=== PATIENT | male | born 1950 | race Caucasian/White ===

== ENCOUNTER 2017-09-12 22:29 | Inpatient (IN) | payer MEDICARE ==
[~2017-09-12] VITALS: Ht 177.8 cm; Wt 97.3 kg
[~2017-09-12 22:29] MED LIST: ASPI81TA82 PO; LOVA20TA PO; PRIN5TAB PO
[2017-09-12 22:34] VITALS: BP 133/88; PULSE 119; RESP 20; TEMP 97.8; O2SAT 96
--- NOTE | 2017-09-12 22:53 | PD ---
HPI Chief Complaint: Cardiac Complaint Time Seen by Provider: 22:36 Travel History International Travel<30 days: No Contact w/Intl Traveler<30days: No Traveled to known affect area: No History of Present Illness HPI PATIENT DEVELOPED PALPITATIONS ABOUT 3HRS AGO WHILE WATCHING BASEBALL GAME, NO CP, STATES THAT HE IS NOT ANTICOAGULATED AND NOT ON ANY MAJOR RATE CONTROLLING MEDICINE BECAUSE OF HIS ABLATIONS. THIS IS UNUSUAL FOR HIM. PT TRIED MULTIPLE WAYS OF RELAXING AND NOTHING SEEMED TO WORK DIDN'T FEEL SAFE GOING TO SLEEP WITH HIS HEART RATE UP SO HE CAME INTO ED FOR FURTHER CARE. CHART AND RN NOTES REVIEWED PCP DR GUY AND CARD: JOJO TOBIAS FOR[facility]LY [facility], [facility] PMHX: HTN, INGUINAL REPAIR, HYPERCHOL, AFIB S/P ABLATION X2 PFSH Past Medical History Atrial Fibrillation: Yes Heart Rhythm Problems: Yes (A FIB s/p ablation x 2 in 2009) Cardiac Catheterization: No Cardiovascular Problems: Yes High Cholesterol: Yes Congestive Heart Failure: No Diabetes: No Diminished Hearing: No Hypertension: Yes Past Surgical History Cardiac Surgery: Yes (two ablations (2009)) Coronary Artery Bypass Graft: No Other Surgery: Yes (INGUINAL HERNIA REPAIR) Social History Alcohol Use: Yes (OCC) Tobacco Use: No Substance Use: No Allergies-Medications (Allergen,Severity, Reaction): Coded Allergies: No Known Allergies (Verified , 08/09/16) Reported Meds & Prescriptions Reported Meds & Active Scripts Active Prinivil (Lisinopril) 5 Mg Tab 5 Mg PO DAILY PRN Reported Aspir-81 (Aspirin) 81 Mg Tab 81 Mg PO DAILY Lovastatin 20 Mg Tab 20 Mg PO HS Review of Systems Except as stated in HPI: all other systems reviewed are Neg Cardiovascular: Positive: Palpitations, Irregular Rhythm Physical Exam Narrative GENERAL: SKIN: Warm and dry. HEAD: Atraumatic. Normocephalic. EYES: Pupils equal and round. No scleral icterus. No injection or drainage. ENT: No nasal bleeding or discharge. Mucous membranes pink and moist. NECK: Trachea midline. No JVD. CARDIOVASCULAR: TACHYCARDIC rate and IRREGULARLY IRREGULAR rhythm. RESPIRATORY: No accessory muscle use. Clear to auscultation. Breath sounds equal bilaterally. GASTROINTESTINAL: Abdomen soft, non-tender, nondistended. Hepatic and splenic margins not palpable. MUSCULOSKELETAL: Extremities without clubbing, cyanosis, or edema. No obvious deformities. NEUROLOGICAL: Awake and alert. No obvious cranial nerve deficits. Motor grossly within normal limits. Five out of 5 muscle strength in the arms and legs. Normal speech. PSYCHIATRIC: Appropriate mood and affect; insight and judgment normal. Data Data Last Documented VS Vital Signs Date Time Temp Pulse Resp B/P (MAP) Pulse Ox O2 Delivery O2 Flow Rate FiO2 09/12/17 23:11 16 95 Room Air 09/12/17 23:11 2.00 09/12/17 22:34 97.8 119 133/88 (103) Orders Orders Electrocardiogram (09/12/17 22:43) B-Type Natriuretic Peptide (09/12/17 22:43) Ckmb (Isoenzyme) Profile (09/12/17 22:43) Complete Blood Count With Diff (09/12/17 22:43) Comprehensive Metabolic Panel (09/12/17 22:43) Prothrombin Time / Inr (Pt) (09/12/17 22:43) Act Partial Throm Time (Ptt) (09/12/17 22:43) Troponin I (09/12/17 22:43) Chest, Single Ap (09/12/17 22:43) Ecg Monitoring (09/12/17 22:43) Bilateral Bp Monitoring (09/12/17 22:43) Iv Access Insert/Monitor (09/12/17 22:43) Oximetry (09/12/17 22:43) Oxygen Administration (09/12/17 22:43) Sodium Chloride 0.9% Flush (Ns Flush) (09/12/17 22:45) Diltiazem Inj (Cardizem Inj) (09/12/17 23:30) Diltiazem Inj (Cardizem Inj) (09/12/17 23:45) Diltiazem Inj (Cardizem Inj) (09/13/17 00:00) Sodium Chlor 0.9% 250 Ml Inj (Ns 250 Ml (09/13/17 00:00) Labs Laboratory Tests Test 09/12/17 22:48 White Blood Count 6.7 TH/MM3 Red Blood Count 4.95 MIL/MM3 Hemoglobin 16.1 GM/DL Hematocrit 46.0 % Mean Corpuscular Volume 93.0 FL Mean Corpuscular Hemoglobin 32.5 PG Mean Corpuscular Hemoglobin Concent 34.9 % Red Cell Distribution Width 14.1 % Platelet Count 223 TH/MM3 Mean Platelet Volume 8.6 FL Neutrophils (%) (Auto) 53.8 % Lymphocytes (%) (Auto) 33.2 % Monocytes (%) (Auto) 9.6 % Eosinophils (%) (Auto) 2.9 % Basophils (%) (Auto) 0.5 % Neutrophils # (Auto) 3.6 TH/MM3 Lymphocytes # (Auto) 2.2 TH/MM3 Monocytes # (Auto) 0.6 TH/MM3 Eosinophils # (Auto) 0.2 TH/MM3 Basophils # (Auto) 0.0 TH/MM3 CBC Comment DIFF FINAL Differential Comment Prothrombin Time 10.4 SEC Prothromb Time International Ratio 0.9 RATIO Activated Partial Thromboplast Time 28.1 SEC Blood Urea Nitrogen 17 MG/DL Creatinine 0.90 MG/DL Random Glucose 111 MG/DL Total Protein 7.4 GM/DL Albumin 3.8 GM/DL Calcium Level 8.4 MG/DL Alkaline Phosphatase 76 U/L Aspartate Amino Transf (AST/SGOT) 14 U/L Alanine Aminotransferase (ALT/SGPT) 25 U/L Total Bilirubin 0.4 MG/DL Sodium Level 139 MEQ/L Potassium Level 4.0 MEQ/L Chloride Level 108 MEQ/L Carbon Dioxide Level 22.1 MEQ/L Anion Gap 9 MEQ/L Estimat Glomerular Filtration Rate 85 ML/MIN Total Creatine Kinase 87 U/L Troponin I LESS THAN 0.02 NG/ML B-Type Natriuretic Peptide 221 PG/ML MDM Medical Decision Making Medical Screen Exam Complete: Yes Emergency Medical Condition: Yes Medical Record Reviewed: Yes Interpretation(s) AFIB WITH RVR, INTRAVENTRICULAR DELAY, NO STEMI PATTERN Differential Diagnosis AFIB WITH RVR V ELECTROLYTE ABNL V ANEMIA V PULM EDEMA V PNA Narrative Course AFTER PROVIDING TWO BOLUS OF CARDIZEM PATIENT CONVERTED TO SINUS RHYTHM AND AFIB RATE WAS RESOLVED WELL, RATE IN 80'S. Diagnosis Primary Impression: AFIB RVR S/P CHEMICAL CONVERSION Patient Instructions: A-fib (Atrial Fibrillation) (ED), General Instructions Additional Instructions: PLEASE MAKE SURE THAT YOU MAKE A FOLLOW UP APPOINTMENT WITH DR JOJO TOBIAS FOR FURTHER ADJUSTMENTS IF NEEDED. TODAY, ALTHOUGH IT TOOK 2 DOSES OF CARDIZEM , YOU EVENTUALLY CONVERTED FROM ATRIAL FIBRILLATION TO SINUS RHYTHM. Disposition: 01 DISCHARGE HOME Condition: Stable Kaleb Monroe MD Sep 12, 2017 22:53
--- NOTE | 2017-09-12 23:01 | RADRPT ---
EXAM DATE/TIME: 09/12/2017 22:44 [facility] COMPARISON: CHEST SINGLE AP, August 09, 2016, 17:18. INDICATIONS : Rapid heart rate. MEDICAL HISTORY : None. SURGICAL HISTORY : None. ENCOUNTER: Initial ACUITY: 1 day PAIN SCORE: 0/10 LOCATION: Chest. FINDINGS: The cardiac silhouette is enlarged in transverse diameter. The lungs are free of acute parenchymal op acity. No effusions are identified. The aortic knob is prominent with tortuosity of the descending th oracic aorta. CONCLUSION: 1. Cardiomegaly. No acute pulmonary disease. Wero Main MD on September 12, 2017 at 22:59 Board Certified Radiologist. This report was verified electronically.
[2017-09-12 23:08] LABS: AUTOMATED NEUTROPHIL # 3.6 TH/MM3 (1.8-7.7); BASOPHIL % 0.5 % (0.0-2.0); EOSINOPHIL # 0.2 TH/MM3 (0-0.4); EOSINOPHIL % 2.9 % (0.0-4.0); HEMO FLAGS DIFF FINAL; LYMPH % 33.2 % (9.0-44.0); LYMPHOCYTE # 2.2 TH/MM3 (1.0-4.8); MEAN CORPUSCULAR HEMOGLOBIN 32.5 PG (27.0-34.0); MEAN CORPUSCULAR HGB CONC 34.9 % (32.0-36.0); MONO % 9.6 % (0.0-8.0); NEUT % 53.8 % (16.0-70.0); PLATELET COUNT 223 TH/MM3 (150-450); RED BLOOD COUNT 4.95 MIL/MM3 (4.50-5.90); RED CELL DISTRIBUTION WIDTH 14.1 % (11.6-17.2); WHITE BLOOD COUNT 6.7 TH/MM3 (4.0-11.0)
[2017-09-12 23:11] VITALS: RESP 16; O2SAT 95
[2017-09-12 23:15] LABS: APTT (PATIENT) 28.1 SEC (24.3-30.1); INTERNATIONAL NORMALIZED RATIO 0.9 RATIO; PROTHROMBIN TIME - PATIENT 10.4 SEC (9.8-11.6)
[2017-09-12 23:24] LABS: ALKALINE PHOSPHATASE 76 U/L (45-117); TOTAL BILIRUBIN ADULT 0.4 MG/DL (0.2-1.0)
[2017-09-12 23:30] LABS: ALT (GPT) 25 U/L (12-78); ANION GAP 9 MEQ/L (5-15); AST (GOT) 14 U/L (15-37); BICARBONATE 22.1 MEQ/L (21.0-32.0); BLOOD UREA NITROGEN 17 MG/DL (7-18); CHLORIDE 108 MEQ/L (98-107); CREATINE KINASE 87 U/L (39-308); GLOMERULAR FILTRATION RATE 85 ML/MIN (>89); SODIUM (NA) 139 MEQ/L (136-145)
[2017-09-12] MEDS ORDERED: DILTIAZEM HCL 25 MG/5 ML VIAL IV ONE (23:30)
[2017-09-12] MEDS ORDERED: DILTIAZEM INJ 125 MG in SODIUM CHLORIDE 0.9% INJ 100 ML IV PRN (23:45)
[2017-09-13] VITALS (11 sets, daily range): BP systolic 104–125; BP diastolic 68–87; PULSE 89–178; RESP 15–20; TEMP 97.6–98.6; O2SAT 93–95
[2017-09-13] MEDS ORDERED: SODIUM CHLOR 0.9% 250 ML INJ 250 ML IV ONE
[2017-09-13] MEDS ORDERED: DILTIAZEM HCL 50 MG/10 ML VIAL IV PUSH ONE
--- NOTE | 2017-09-13 08:18 | PD.CONS ---
HPI Service cardiology Consult Requested By Reason for Consult afib RVR Primary Care Physician Darrel Campbell MD History of Present Illness This is a 67 yo WM with history of paroxysmal afib with ablation in 2009 and dilated cardiomyopathy who presented to the ED with fast heart rate last night found to be in afib RVR. He has had an ablation in 2009 and notes he's been in NSR ever since with the exception of an episode last year where he was in afib briefly. His last echo in November 2016 showed an EF of 35-40% and he has been medically managed with ACEi and bb. 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 HR now reduced to 112. He is feeling better and denies chest pain, sob or palpitations. (Monika Miller) Review of Systems Consitutional: DENIES: Fatigue, Fever, Chills, Weight gain, Weight loss Respiratory: DENIES: Cough, Snoring, Shortness of breath, Wheezing, Sputum production Cardiovascular: DENIES: Chest pain, Palpitations, Syncope Gastrointestinal: DENIES: Nausea, Vomiting, Change in bowel habits, Reflux, Bloody stools, Melena (Monika Miller) Past Family Social History Allergies: Coded Allergies: No Known Allergies (Verified , 08/09/16) Past Medical History HTN HLD pafib Past Surgical History ablation x 2 inguinal hernia repair Reported Medications Reported Meds & Active Scripts Active Prinivil (Lisinopril) 5 Mg Tab 5 Mg PO DAILY PRN Reported Aspir-81 (Aspirin) 81 Mg Tab 81 Mg PO DAILY Lovastatin 20 Mg Tab 20 Mg PO HS Active Ordered Medications Current Medications Medications (Trade) Dose Ordered Sig/Rich Route Start Time Stop Time Status Last Admin (NS Flush) 2 ml UNSCH PRN IVF 09/12/17 22:45 Diltiazem HCl 125 mg/Sodium Chloride 125 ml @ 5 mls/hr TITRATE PRN IV 09/12/17 23:45 09/13/17 01:36 Family History non-contributory Social History social drinker no tobacco no illicit drug use (Monika Miller) Physical Exam Vital Signs Vital Signs Date Time Temp Pulse Resp B/P (MAP) Pulse Ox O2 Delivery O2 Flow Rate FiO2 09/13/17 06:57 09/13/17 06:00 89 15 104/68 (80) 93 Room Air 09/13/17 02:43 123 114/70 09/13/17 01:53 121 109/73 09/13/17 01:36 121 105/71 09/13/17 01:13 84 18 110/68 (82) 99 09/12/17 23:11 16 95 Room Air 09/12/17 23:11 95 Nasal Cannula 2.00 09/12/17 22:34 97.8 119 20 133/88 (103) 96 Physical Exam HEAD: Atraumatic. Normocephalic. EYES: Pupils equal and round. No scleral icterus. No injection or drainage. ENT: No nasal bleeding or discharge. Mucous membranes pink and moist. NECK: Trachea midline. No JVD. CARDIOVASCULAR: irregular rate and rhythm, no murmurs RESPIRATORY: No accessory muscle use. Clear to auscultation. Breath sounds equal bilaterally. GASTROINTESTINAL: Abdomen soft, non-tender, nondistended. MUSCULOSKELETAL: Extremities without clubbing, cyanosis, or edema. No obvious deformities. NEUROLOGICAL: Awake and alert. No obvious cranial nerve deficits. Motor grossly within normal limits. Five out of 5 muscle strength in the arms and legs. Normal speech. PSYCHIATRIC: Appropriate mood and affect; insight and judgment normal. Laboratory Laboratory Tests Test 09/12/17 22:48 White Blood Count 6.7 Red Blood Count 4.95 Hemoglobin 16.1 Hematocrit 46.0 Mean Corpuscular Volume 93.0 Mean Corpuscular Hemoglobin 32.5 Mean Corpuscular Hemoglobin Concent 34.9 Red Cell Distribution Width 14.1 Platelet Count 223 Mean Platelet Volume 8.6 Neutrophils (%) (Auto) 53.8 Lymphocytes (%) (Auto) 33.2 Monocytes (%) (Auto) 9.6 Eosinophils (%) (Auto) 2.9 Basophils (%) (Auto) 0.5 Neutrophils # (Auto) 3.6 Lymphocytes # (Auto) 2.2 Monocytes # (Auto) 0.6 Eosinophils # (Auto) 0.2 Basophils # (Auto) 0.0 CBC Comment DIFF FINAL Differential Comment Prothrombin Time 10.4 Prothromb Time International Ratio 0.9 Activated Partial Thromboplast Time 28.1 Blood Urea Nitrogen 17 Creatinine 0.90 Random Glucose 111 Total Protein 7.4 Albumin 3.8 Calcium Level 8.4 Alkaline Phosphatase 76 Aspartate Amino Transf (AST/SGOT) 14 Alanine Aminotransferase (ALT/SGPT) 25 Total Bilirubin 0.4 Sodium Level 139 Potassium Level 4.0 Chloride Level 108 Carbon Dioxide Level 22.1 Anion Gap 9 Estimat Glomerular Filtration Rate 85 Total Creatine Kinase 87 Troponin I LESS THAN 0.02 B-Type Natriuretic Peptide 221 (Monika Miller) Result Diagram: 09/12/17224709/12/172247 Imaging Last 24 hours Impressions Chest X-Ray 09/12/172242 Signed Impressions: Service Date/Time: Tuesday, September 12, 2017 22:44 - CONCLUSION: 1. Cardiomegaly. No acute pulmonary disease. Wero Main MD (Monika Miller) Assessment and Plan Problem List: (1) Atrial fibrillation with RVR ICD Codes: I48.91 - Unspecified atrial fibrillation Status: Acute (2) Cardiomyopathy ICD Codes: I42.9 - Cardiomyopathy, unspecified Status: Chronic Assessment and Plan 67 yo WM with pafib and cardiomyopathy, EF 35-40% afib RVR: convert cardizem to po will need to discuss need for anticoagulation. CHADS-Vasc = 3 (Monika Miller) Assessment and Plan PO cardizem limited by SBP wean cardizem gtt add digoxin no need for echo. recently done as outpatient. agreeable to anticoagulation. start eliquis hold BB and DAVID for now to allow SBP for titration of rate control meds (Shayne Ortega MD) Monika Miller Sep 13, 2017 08:18 Shayne Ortega MD Sep 13, 2017 11:03
[2017-09-13] MEDS ORDERED: LISINOPRIL 10 MG TAB PO SCH (09:00)
--- NOTE | 2017-09-13 09:00 | HHI.HP ---
HPI Service [facility] Hospitalists Primary Care Physician Darrel Campbell MD Admission Diagnosis afib/flutter Chief Complaint: palpitation Travel History International Travel<30 Days: No Contact w/Intl Traveler <30 Da: No Traveled to Known Affected Are: No History of Present Illness Pt is 67 yo with hx afib/flutter and 2 ablations around 2009. He has chronic systolic chf and ef around 40%. Pt says he developed some brief afib last year. Last night developed more sustained palpitations. Came to ED and found to have afib/rvr. Placed on cardizem gtt. Seen by cardiology this AM. no cp or sob. Review of Systems Other palpitations Past Family Social History Past Medical History afib/flutter. ablation x 2 2009 hyperlipidemia chronic systolic chf ef 40% Tonsils/adenoids childhood hernia repair Reported Medications lovastatin 20mg qhs lisinipril 10mg dialy coreg 6.25mg bid asa 81mg daily Allergies: Coded Allergies: No Known Allergies (Verified , 08/09/16) Family History NC Social History no tob. rare etoh Physical Exam Vital Signs heart irreg lung cta abd s/nt ext no edema Vital Signs Date Time Temp Pulse Resp B/P (MAP) Pulse Ox O2 Delivery O2 Flow Rate FiO2 09/13/17 06:57 09/13/17 06:00 89 15 104/68 (80) 93 Room Air 09/13/17 02:43 123 114/70 09/13/17 01:53 121 109/73 09/13/17 01:36 121 105/71 09/13/17 01:13 84 18 110/68 (82) 99 09/12/17 23:11 16 95 Room Air 09/12/17 23:11 95 Nasal Cannula 2.00 09/12/17 22:34 97.8 119 20 133/88 (103) 96 Laboratory Laboratory Tests Test 09/12/17 22:48 White Blood Count 6.7 Red Blood Count 4.95 Hemoglobin 16.1 Hematocrit 46.0 Mean Corpuscular Volume 93.0 Mean Corpuscular Hemoglobin 32.5 Mean Corpuscular Hemoglobin Concent 34.9 Red Cell Distribution Width 14.1 Platelet Count 223 Mean Platelet Volume 8.6 Neutrophils (%) (Auto) 53.8 Lymphocytes (%) (Auto) 33.2 Monocytes (%) (Auto) 9.6 Eosinophils (%) (Auto) 2.9 Basophils (%) (Auto) 0.5 Neutrophils # (Auto) 3.6 Lymphocytes # (Auto) 2.2 Monocytes # (Auto) 0.6 Eosinophils # (Auto) 0.2 Basophils # (Auto) 0.0 CBC Comment DIFF FINAL Differential Comment Prothrombin Time 10.4 Prothromb Time International Ratio 0.9 Activated Partial Thromboplast Time 28.1 Blood Urea Nitrogen 17 Creatinine 0.90 Random Glucose 111 Total Protein 7.4 Albumin 3.8 Calcium Level 8.4 Alkaline Phosphatase 76 Aspartate Amino Transf (AST/SGOT) 14 Alanine Aminotransferase (ALT/SGPT) 25 Total Bilirubin 0.4 Sodium Level 139 Potassium Level 4.0 Chloride Level 108 Carbon Dioxide Level 22.1 Anion Gap 9 Estimat Glomerular Filtration Rate 85 Total Creatine Kinase 87 Troponin I LESS THAN 0.02 B-Type Natriuretic Peptide 221 Result Diagram: 09/12/17224709/12/172247 Caprini VTE Risk Assessment Caprini VTE Risk Assessment: Mod/High Risk (score >= 2) Caprini Risk Assessment Model Point Value = 1 Point Value = 2 Point Value = 3 Point Value = 5 Age 41-60 Minor surgery BMI > 25 kg/m2 Swollen legs Varicose veins or History of unexplained or recurrent spontaneous Oral contraceptives or hormone replacement Sepsis (< 1 month) Serious lung disease, including pneumonia (< 1 month) Abnormal pulmonary function Acute myocardial infarction Congestive heart failure (< 1 month) History of inflammatory bowel disease Medical patient at bed rest Age 61-74 Arthroscopic surgery Major open surgery (> 45 min) Laparoscopic surgery (> 45 min) Malignancy Confined to bed (> 72 hours) Immobilizing plaster cast Central venous access Age >= 75 History of VTE Family history of VTE Factor V Leiden Prothrombin [id number] Lupus anticoagulant Anticardiolipin antibodies Elevated serum homocysteine Heparin-induced thrombocytopenia Other congenital or acquired thrombophilia Stroke (< 1 month) Elective arthroplasty Hip, pelvis, or leg fracture Acute spinal cord injury (< 1 month) Prophylaxis Regimen Total Risk Factor Score Risk Level Prophylaxis Regimen 0-1 Low Early ambulation 2 Moderate Order ONE of the following: *Sequential Compression Device (SCD) *Heparin 5000 units SQ BID 3-4 Higher Order ONE of the following medications: *Heparin 5000 units SQ TID *Enoxaparin/Lovenox 40 mg SQ daily (WT < 150 kg, CrCl > 30 mL/min) *Enoxaparin/Lovenox 30 mg SQ daily (WT < 150 kg, CrCl > 10-29 mL/min) *Enoxaparin/Lovenox 30 mg SQ BID (WT < 150 kg, CrCl > 30 mL/min) AND/OR *Sequential Compression Device (SCD) 5 or more Highest Order ONE of the following medications: *Heparin 5000 units SQ TID (Preferred with Epidurals) *Enoxaparin/Lovenox 40 mg SQ daily (WT < 150 kg, CrCl > 30 mL/min) *Enoxaparin/Lovenox 30 mg SQ daily (WT < 150 kg, CrCl > 10-29 mL/min) *Enoxaparin/Lovenox 30 mg SQ BID (WT < 150 kg, CrCl > 30 mL/min) AND *Sequential Compression Device (SCD) Assessment and Plan Problem List: (1) Atrial fibrillation with RVR ICD Codes: I48.91 - Unspecified atrial fibrillation Status: Acute Plan: 1. afib/flutter rvr. (past hx afib/flutter s/p ablations) 2. chronic systolic chf ef 40% plan: cardiology following wean cardizem gtt. po dilt added cont his dany lisinipril for chf resume his coreg if ok with cardiology and he tolerates it with the ccb. asa for now. 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 (2) Cardiomyopathy ICD Codes: I42.9 - Cardiomyopathy, unspecified Status: Chronic Physician Certification 2 Midnight Certification Type: Admission for Inpatient Services Order for Inpatient Services 3The services are ordered in accordance with Medicare regulations or non- Medicare payer requirements, as applicable. In the case of services not specified as inpatient-only, they are appropriately provided as inpatient services in accordance with the 2-midnight benchmark. Estimated LOS (days): 3 3 days is the estimated time the patient will need to remain in the hospital, assuming treatment plan goals are met and no additional complications. Post-Hospital Plan: Home Geovanni Schulte MD Sep 13, 2017 09:00
[2017-09-13] MEDS ORDERED: LISI10TA3 PO (09:04)
[2017-09-13] MEDS ORDERED: CARV6.25 PO (09:04)
[2017-09-13] MEDS: DILTIAZEM HCL 30 MG TAB PO SCH ×3 (10:18→19:40)
[2017-09-13] MEDS: ASPIRIN 81 MG CHEW TAB CHEW SCH (10:19)
[2017-09-13] MEDS ORDERED: DIGOXIN 0.5 MG/2 ML VIAL IV PUSH ONE (11:00)
--- NOTE | 2017-09-13 13:54 | EKG ---
Date Performed: 09/13/2017 Time Performed: 01:30:26 PTAGE: 67 years EKG: ATRIAL FLUTTER/TACHYCARDIA WITH RAPID VENTRICULAR RESPONSE INTRAVENTRICULAR CONDUCTION ABHIJEET Y INFERIOR MYOCARDIAL INFARCTION ABNORMAL ECG NO PREVIOUS TRACING DOCTOR: Shayne Ortega Interpretating Date/Time 09/13/2017 13:45:36
--- NOTE | 2017-09-13 13:55 | EKG ---
Date Performed: 09/12/2017 Time Performed: 22:43:20 PTAGE: 67 years EKG: ATRIAL FLUTTER/TACHYCARDIA WITH RAPID VENTRICULAR RESPONSE INTRAVENTRICULAR CONDUCTION ABHIJEET Y INFERIOR MYOCARDIAL INFARCTION ABNORMAL ECG PREVIOUS TRACING : 08/09/2016 18.02 DOCTOR: Shayne Ortega Interpretating Date/Time 09/13/2017 13:46:15
[2017-09-13] MEDS: APIXABAN 5 MG TABLET PO SCH (19:40)
[2017-09-13] MEDS ORDERED: CHLORHEXIDINE GLUCONATE 2 % 1 PACK (2 CLOTHS)(extra cloths) TOPICAL PRN (20:00)
[2017-09-14] VITALS (14 sets, daily range): BP systolic 115–133; BP diastolic 66–78; PULSE 58–171; RESP 18–20; TEMP 97.7–98.5; O2SAT 95–99
[2017-09-14] MEDS: DILTIAZEM HCL 30 MG TAB PO SCH (03:18)
[2017-09-14] MEDS: CHLORHEXIDINE GLUCONATE 2 % 1 PACK (2 CLOTHS)(taper/protocol) TOPICAL SCH (03:28)
[2017-09-14] MEDS ORDERED: DILTIAZEM HCL 60 MG TAB PO ONE (07:45)
[2017-09-14] MEDS: ASPIRIN 81 MG CHEW TAB CHEW SCH (08:13)
[2017-09-14] MEDS: APIXABAN 5 MG TABLET PO SCH ×2 (08:13→21:56)
--- NOTE | 2017-09-14 08:33 | HHI.PR ---
Subjective Remarks pt heart rate going 180-200 when getting up to bathroom feels palpitations Objective Vitals heart irreg lung cta abd s/nt ext no edema Vital Signs Date Time Temp Pulse Resp B/P (MAP) Pulse Ox O2 Delivery O2 Flow Rate FiO2 09/14/17 04:33 Room Air 09/14/17 04:00 98.2 100 20 118/70 (86) 96 09/14/17 00:09 Room Air 09/14/17 00:00 98.1 97 18 115/73 (87) 96 09/13/17 20:03 99 09/13/17 20:00 Room Air 09/13/17 20:00 98.5 99 18 125/82 (96) 95 09/13/17 19:34 178 09/13/17 16:44 89 09/13/17 16:00 97.8 97 20 121/80 (94) 95 09/13/17 12:00 100 09/13/17 11:00 97.6 09/13/17 10:00 117 Result Diagram: 09/12/17224709/12/172247 A/P Problem List: (1) Atrial fibrillation with RVR ICD Codes: I48.91 - Unspecified atrial fibrillation Status: Acute Plan: 1. afib/flutter rvr. (past hx afib/flutter s/p ablations) ....still not controlled 2. chronic systolic chf ef 40% plan: cardiology following afib/flutter not controlled increase diltiazem. cardiology added digoxin. prn cardizem gtt bb and dany on hold for now. eliquis started. (2) Cardiomyopathy ICD Codes: I42.9 - Cardiomyopathy, unspecified Status: Chronic Geovanni Schulte MD Sep 14, 2017 08:33
[2017-09-14] MEDS ORDERED: LISINOPRIL 10 MG TAB PO SCH (09:00)
[2017-09-14] MEDS ORDERED: DIGOXIN 0.25 MG TAB PO SCH (09:00)
[2017-09-14] MEDS ORDERED: DILTIAZEM HCL 25 MG/5 ML VIAL ONE (09:14)
[2017-09-14] MEDS: DILTIAZEM INJ 125 MG in SODIUM CHLORIDE 0.9% INJ 100 ML IV PRN (09:30)
--- NOTE | 2017-09-14 09:59 | PD.CARD.PN ---
Subjective Subjective Remarks HR increased this morning with walking from bed to bathroom, rate 165. Cardizem bolus given. patient has converted to sinus rhythm, feeling better but remains tachycardic. no chest pain. (Monika Miller) Objective Medications Current Medications Medications (Trade) Dose Ordered Sig/Rich Route Start Time Stop Time Status Last Admin (NS Flush) 2 ml UNSCH PRN IVF 09/12/17 22:45 (Aspirin Chew) 81 mg DAILY CHEW 09/13/17 09:00 09/14/17 08:13 (Lanoxin) 0.25 mg DAILY PO 09/14/17 09:00 09/14/17 08:13 (Eliquis) 5 mg BID PO 09/13/17 21:00 09/14/17 08:13 Miscellaneous Information Patient in critical care unit? Ass... [id number] .XX 09/13/17 20:00 (Chlorhexidine 2% Cloth) 3 pack DAILY@04 TOPICAL 09/14/17 04:00 09/18/17 04:01 (Chlorhexidine 2% Cloth) 3 pack UNSCH PRN TOPICAL 09/13/17 20:00 09/18/17 19:54 (Cardizem) 60 mg Q6HR PO 09/14/17 12:00 Diltiazem HCl 125 mg/Sodium Chloride 125 ml @ 5 mls/hr TITRATE PRN IV 09/14/17 07:45 09/14/17 09:30 Vital Signs / I&O Vital Signs Date Time Temp Pulse Resp B/P (MAP) Pulse Ox O2 Delivery O2 Flow Rate FiO2 09/14/17 09:45 102 122/68 (86) 09/14/17 09:30 104 122/68 (86) 09/14/17 09:30 165 133/67 09/14/17 09:15 171 133/67 (89) 09/14/17 08:00 98.5 58 18 122/66 (84) 97 09/14/17 04:33 Room Air 09/14/17 04:00 98.2 100 20 118/70 (86) 96 09/14/17 00:09 Room Air 09/14/17 00:00 98.1 97 18 115/73 (87) 96 09/13/17 20:03 99 09/13/17 20:00 Room Air 09/13/17 20:00 98.5 99 18 125/82 (96) 95 09/13/17 19:34 178 09/13/17 16:44 89 09/13/17 16:00 97.8 97 20 121/80 (94) 95 09/13/17 12:00 100 09/13/17 11:00 97.6 09/13/17 10:00 117 I/O 09/13/17 09/13/17 09/13/17 09/14/17 09/14/17 09/14/17 07:00 15:00 23:00 07:00 15:00 23:00 Intake Total 720 ml Output Total 850 ml Balance -130 ml Intake Oral 720 ml Output Urine Total 850 ml # Bowel Movements 1 Physical Exam GENERAL: SKIN: Warm and dry. HEAD: Atraumatic. Normocephalic. EYES: Pupils equal and round. ENT: No nasal bleeding or discharge. NECK: Trachea midline. No JVD. CARDIOVASCULAR: Regular rate and rhythm. no murmurs RESPIRATORY: No accessory muscle use. Clear to auscultation. Breath sounds equal bilaterally. GASTROINTESTINAL: Abdomen soft, non-tender, nondistended. MUSCULOSKELETAL: Extremities without clubbing, cyanosis, or edema. No obvious deformities. NEUROLOGICAL: Awake and alert. No obvious cranial nerve deficits. Normal speech. PSYCHIATRIC: Appropriate mood and affect; insight and judgment normal. Laboratory Laboratory Tests Test 09/14/17 08:40 (Monika Miller) Assessment and Plan Problem List: (1) Atrial fibrillation with RVR ICD Codes: I48.91 - Unspecified atrial fibrillation Status: Acute (2) Cardiomyopathy ICD Codes: I42.9 - Cardiomyopathy, unspecified Status: Chronic Assessment and Plan 67 yo WM with pafib and cardiomyopathy, EF 35-40% afib: now in NSR but tachycardic. Cardizem bolus given. HR~ 100. SBP 130. anticoagulated on Eliquis will give amio loading dose over one hour then discharge with amio 200mg daily. d/c digoxin and change to cardizem CD 120mg daily follow up with cardiology outpatient in 1-2 weeks. ok for discharge (Monika Miller) Assessment and Plan converted cont CCB DC dig amio bolus and PO [address] de la rosa in 1-2 weeks ok for DC today (Shayne Ortega MD) Monika Miller Sep 14, 2017 09:59 Shayne Ortega MD Sep 14, 2017 10:10
[2017-09-14] MEDS ORDERED: DILTIAZEM HCL 25 MG/5 ML VIAL IV ONE (11:30)
[2017-09-14] MEDS ORDERED: AMIODARONE INJ 150 MG in DEXTROSE 5% IN WATER 100ML INJ 97 ML IV ONE ×4 (11:30→19:01)
[2017-09-14] MEDS ORDERED: DILTIAZEM HCL 60 MG TAB PO SCH (12:00)
[2017-09-14] MEDS ORDERED: ADENOSINE IV SOLN 3 MG/ML 2 ML VIAL ONE (18:55)
[2017-09-14] MEDS ORDERED: ADENOSINE IV SOLN 3 MG/ML 2 ML VIAL IV PUSH ONE (19:00)
[2017-09-14] MEDS: AMIODARONE INJ 450 MG in DEXTROSE 5% IN WATE(EXCEL) INJ 241 ML IV PRN ×2 (20:59)
[2017-09-15] VITALS (14 sets, daily range): BP systolic 108–138; BP diastolic 61–87; PULSE 99–107; RESP 16–32; TEMP 97.8–98.5; O2SAT 94–96
[2017-09-15] MEDS: DILTIAZEM INJ 125 MG in SODIUM CHLORIDE 0.9% INJ 100 ML IV PRN ×3 (00:19→20:44)
[2017-09-15] MEDS: CHLORHEXIDINE GLUCONATE 2 % 1 PACK (2 CLOTHS)(taper/protocol) TOPICAL SCH (04:00)
[2017-09-15] MEDS: AMIODARONE INJ 450 MG in DEXTROSE 5% IN WATE(EXCEL) INJ 241 ML IV PRN ×2 (06:25)
--- NOTE | 2017-09-15 08:17 | HHI.PR ---
Subjective Remarks lying in bed. no cp. Objective Vitals heart reg lung cta abd s/nt ext no edema Vital Signs Date Time Temp Pulse Resp B/P (MAP) Pulse Ox O2 Delivery O2 Flow Rate FiO2 09/15/17 06:25 97 124/79 09/15/17 06:00 100 09/15/17 04:00 101 09/15/17 03:00 98.1 99 18 108/64 (79) 96 09/15/17 02:00 99 09/15/17 00:19 101 130/77 09/15/17 00:00 97.9 100 20 130/77 (94) 95 09/15/17 00:00 100 09/14/17 22:00 100 09/14/17 21:00 102 09/14/17 20:59 101 120/77 09/14/17 20:00 114 09/14/17 20:00 98.0 110 18 122/74 (90) 99 09/14/17 19:43 103 170/82 09/14/17 19:00 96 Room Air 09/14/17 18:49 96 Nasal Cannula 2.50 09/14/17 16:05 97.9 101 18 123/67 (85) 96 09/14/17 14:01 101 122/67 (85) 09/14/17 13:15 102 120/69 09/14/17 12:00 97.7 101 20 118/78 (91) 95 09/14/17 10:30 104 120/74 (89) 09/14/17 09:45 102 122/68 (86) 09/14/17 09:30 104 122/68 (86) 09/14/17 09:30 165 133/67 09/14/17 09:15 171 133/67 (89) Result Diagram: 09/12/17224709/12/172247 A/P Problem List: (1) Atrial fibrillation with RVR ICD Codes: I48.91 - Unspecified atrial fibrillation Status: Acute Plan: 1. afib/flutter rvr. (past hx afib/flutter s/p ablations) ....still not controlled apparent episode of VT last night. 2. chronic systolic chf ef 40% plan: cardiology following afib/flutter not controlled ...moved back to ICU last night pt currently on 15mg/hr cardizem plus iv amiodarone load last night pt apparently had some VT EP cardiology Dr jN reconsulted. pt on eliquis his bb/dany are on hold (2) Cardiomyopathy ICD Codes: I42.9 - Cardiomyopathy, unspecified Status: Chronic Geovanni Schulte MD Sep 15, 2017 08:17
[2017-09-15] MEDS ORDERED: DILTIAZEM-CD 120 MG CAP ER PO SCH (09:00)
[2017-09-15] MEDS ORDERED: AMIODARONE 200 MG TAB PO SCH (09:00)
[2017-09-15] MEDS: APIXABAN 5 MG TABLET PO SCH ×2 (10:14→19:57)
[2017-09-15] MEDS: ASPIRIN 81 MG CHEW TAB CHEW SCH (10:14)
[2017-09-15] MEDS: DIGOXIN 0.25 MG TAB PO SCH (10:15)
--- NOTE | 2017-09-15 10:28 | PD.CARD.PN ---
Subjective Subjective Remarks feeling better today transferred to ICU Objective Medications Current Medications Medications (Trade) Dose Ordered Sig/Rich Route Start Time Stop Time Status Last Admin (NS Flush) 2 ml UNSCH PRN IVF 09/12/17 22:45 (Aspirin Chew) 81 mg DAILY CHEW 09/13/17 09:00 09/15/17 10:14 (Eliquis) 5 mg BID PO 09/13/17 21:00 09/15/17 10:14 Miscellaneous Information Patient in critical care unit? Ass... Q361D .XX 09/13/17 20:00 (Chlorhexidine 2% Cloth) 3 pack DAILY@04 TOPICAL 09/14/17 04:00 09/18/17 04:01 (Chlorhexidine 2% Cloth) 3 pack UNSCH PRN TOPICAL 09/13/17 20:00 09/18/17 19:54 (Cordarone) 200 mg DAILY PO 09/15/17 09:00 09/15/17 10:14 Diltiazem HCl 125 mg/Sodium Chloride 125 ml @ 5 mls/hr TITRATE PRN IV 09/14/17 19:00 09/15/17 10:15 (Cardizem Cd) 240 mg DAILY PO 09/16/17 09:00 (Lanoxin) 0.25 mg DAILY PO 09/15/17 10:15 09/15/17 10:15 Vital Signs / I&O Vital Signs Date Time Temp Pulse Resp B/P (MAP) Pulse Ox O2 Delivery O2 Flow Rate FiO2 09/15/17 10:15 100 141/83 09/15/17 06:25 97 124/79 09/15/17 06:00 100 09/15/17 04:00 101 09/15/17 03:00 98.1 99 18 108/64 (79) 96 09/15/17 02:00 99 09/15/17 00:19 101 130/77 09/15/17 00:00 97.9 100 20 130/77 (94) 95 09/15/17 00:00 100 09/14/17 22:00 100 09/14/17 21:00 102 09/14/17 20:59 101 120/77 09/14/17 20:00 114 09/14/17 20:00 98.0 110 18 122/74 (90) 99 09/14/17 19:43 103 170/82 09/14/17 19:00 96 Room Air 09/14/17 18:49 96 Nasal Cannula 2.50 09/14/17 16:05 97.9 101 18 123/67 (85) 96 09/14/17 14:01 101 122/67 (85) 09/14/17 13:15 102 120/69 09/14/17 12:00 97.7 101 20 118/78 (91) 95 09/14/17 10:30 104 120/74 (89) I/O 09/14/17 09/14/17 09/14/17 09/15/17 09/15/17 09/15/17 07:00 15:00 23:00 07:00 15:00 23:00 Intake Total 720 ml 480 ml 97 ml 670 ml Output Total 850 ml 850 ml Balance -130 ml 480 ml 97 ml -180 ml Intake Oral 720 ml 480 ml 320 ml IV Total 97 ml 350 ml Output Urine Total 850 ml 850 ml # Voids 2 # Bowel Movements 1 0 Physical Exam GENERAL: SKIN: Warm and dry. HEAD: Normocephalic. EYES: No scleral icterus. No injection or drainage. NECK: Supple, trachea midline. No JVD or lymphadenopathy. CARDIOVASCULAR: Regular rate and rhythm without murmurs, gallops, or rubs. RESPIRATORY: Breath sounds equal bilaterally. No accessory muscle use. GASTROINTESTINAL: Abdomen soft, non-tender, nondistended. MUSCULOSKELETAL: No cyanosis, or edema. BACK: Nontender without obvious deformity. No CVA tenderness. Laboratory Laboratory Tests Test 09/14/17 20:30 Nasal Screen MRSA (PCR) MRSA NOT DETECTED Imaging Last Impressions Chest X-Ray 09/12/17 0153 Signed Impressions: Service Date/Time: Tuesday, September 12, 2017 22:44 - CONCLUSION: 1. Cardiomegaly. No acute pulmonary disease. Wero Main MD Assessment and Plan Problem List: (1) Atrial fibrillation with RVR ICD Codes: I48.91 - Unspecified atrial fibrillation Status: Acute (2) Cardiomyopathy ICD Codes: I42.9 - Cardiomyopathy, unspecified Status: Chronic Assessment and Plan Appears to be back in NSR obtain EKG wean cardizem gtt DC amio gtt increase CCB PO add digoxin discussed with Dr. Nj. Will see later today. 2d echo. last EF 35-40%. Shayne Ortega MD Sep 15, 2017 10:28
--- NOTE | 2017-09-15 16:24 | ECHRPT ---
Indication: cardiomyopathy CONCLUSIONS The left ventricular systolic function is ynnxshme-pq-meiiycm reduced with an estimated ejection fra ction in the range of 35-40%. Normal left ventricular size. Wall thickness is normal. No regional wall motion abnormalities are present. The left atrial size is upper limits of normal. Sblxj-yj-znwj mitral valve regurgitation. Trace aortic valve regurgitation. The pulmonary valve is not well visualized. BP: / HR: Rhythm: Atrial fibrillation MEASUREMENTS (Male / Female) Normal Values Technical Quality:Fair 2D ECHO LVOT Diameter 2.0 cm LV Ejection Fraction MOD 4C 54.5 % LV Ejection Fraction 4C AL 56.9 % M-MODE Aortic Root Diameter MM 3.9 cm AV Cusp Separation MM 2.2 cm DOPPLER AV Peak Velocity 130.0 cm/s AV Peak Gradient 6.8 mmHg AI Peak Velocity 231.0 cm/s AI Peak Gradient 21.3 mmHg AI Pressure Half Time 512.0 ms LVOT Peak Velocity 94.3 cm/s LVOT Peak Gradient 3.6 mmHg AV Area Cont Eq pk 2.3 cm MV Area PHT 2.8 cm Mitral E Point Velocity 60.7 cm/s Mitral A Point Velocity 47.9 cm/s Mitral E to A Ratio 1.3 LV E' Lateral Velocity 11.6 cm/s Mitral E to LV E' Lateral Ratio 5.2 LV E' Septal Velocity 7.5 cm/s Mitral E to LV E' Septal Ratio 8.1 PV Peak Velocity 89.6 cm/s PV Peak Gradient 3.2 mmHg FINDINGS LEFT VENTRICLE The left ventricular systolic function is gppetvwi-rv-hvjiuxo reduced with an estimated ejection fra ction in the range of 35-40%. Normal left ventricular size. Wall thickness is normal. No regional wall motion abnormalities are present. RIGHT VENTRICLE Normal right ventricular size and systolic function. LEFT ATRIUM The left atrial size is upper limits of normal. RIGHT ATRIUM The right atrial size is normal. ATRIAL SEPTUM Normal atrial septal thickness without atrial level shunting by limited color doppler interrogation. AORTA The aortic root and proximal ascending aorta are normal in size on limited imaging. MITRAL VALVE Structurally normal mitral valve. Vvxky-kl-vhpi mitral valve regurgitation. AORTIC VALVE Trileaflet aortic valve. Trace aortic valve regurgitation. TRICUSPID VALVE Structurally normal tricuspid valve. No tricuspid valve stenosis or regurgitation. PULMONARY VALVE The pulmonary valve is not well visualized. VESSELS The inferior vena cava is normal in size. PERICARDIUM No pericardial effusion. Shayne Ortega MD, FACC (Electronically Signed) Final Date:15 September 2017 16:23
[2017-09-15] MEDS: SODIUM CHLORIDE 0.9% FLUSH 10 ML FLUSH IVF PRN (19:58)
--- NOTE | 2017-09-15 21:12 | EKG ---
Date Performed: 09/15/2017 Time Performed: 10:40:01 PTAGE: 67 years EKG: SINUS TACHYCARDIA MARKED LEFT AXIS DEVIATION LEFT BUNDLE BRANCH BLOCK ABNORMAL ECG PREVIOUS TRACING : 09/14/2017 19.00 Compared to the previous EKG no significant change DOCTOR: Jimi Melo Interpretating Date/Time 09/15/2017 21:11:05
--- NOTE | 2017-09-15 21:31 | EKG ---
Date Performed: 09/14/2017 Time Performed: 19:00:38 PTAGE: 67 years EKG: Sinus tachycardia with PAC(s) with borderline 1st degree A-V block. Possible right atrial a bnormality Left axis deviation IV conduction defect Anterolateral infarct - age undetermined Abnormal ECG PREVIOUS TRACING : 09/14/2017 18.47 DOCTOR: Jimi Melo Interpretating Date/Time 09/15/2017 21:29:24
[2017-09-15] MEDS: AMIODARONE 200 MG TAB PO SCH (21:48)
[2017-09-15] MEDS: CARVEDILOL 6.25 MG TAB PO SCH (21:48)
--- NOTE | 2017-09-15 23:21 | EKG ---
Date Performed: 09/14/2017 Time Performed: 18:47:00 PTAGE: 67 years EKG: Probable ventricular tachycardia. Left axis deviation IV conduction defect Abnormal ECG PREVIOUS TRACING : 09/13/2017 01.30 DOCTOR: Jimi Melo Interpretating Date/Time 09/15/2017 23:20:30
[2017-09-16] VITALS (7 sets, daily range): BP systolic 100–120; BP diastolic 61–84; PULSE 84–120; RESP 17–20; TEMP 97.8–99; O2SAT 94–96
[2017-09-16] MEDS: CHLORHEXIDINE GLUCONATE 2 % 1 PACK (2 CLOTHS)(taper/protocol) TOPICAL SCH (04:00)
[2017-09-16] MEDS: ASPIRIN 81 MG CHEW TAB CHEW SCH (08:35)
[2017-09-16] MEDS: APIXABAN 5 MG TABLET PO SCH ×2 (08:35→20:58)
[2017-09-16] MEDS: AMIODARONE 200 MG TAB PO SCH ×2 (08:35→20:58)
[2017-09-16] MEDS: DILTIAZEM-CD 240 MG CAP ER PO SCH (08:35)
[2017-09-16] MEDS: CARVEDILOL 6.25 MG TAB PO SCH (08:35)
[2017-09-16] MEDS: DIGOXIN 0.25 MG TAB PO SCH (08:36)
--- NOTE | 2017-09-16 09:08 | HHI.PR ---
Subjective Remarks right arm phlebitis at old iv site iv cardizem stopped this AM Objective Vitals heart irreg lung cta abd s/nt ext right forearm/AC area tender/indurated/erythema near old iv site. no pitting Vital Signs Date Time Temp Pulse Resp B/P (MAP) Pulse Ox O2 Delivery O2 Flow Rate FiO2 09/16/17 08:00 97.8 106 18 119/84 (96) 96 09/16/17 06:00 92 122/68 09/16/17 04:00 98.3 102 20 116/63 (80) 95 09/16/17 00:00 99.0 89 20 100/68 (79) 94 09/15/17 20:44 124 130/74 09/15/17 20:40 124 130/74 09/15/17 20:00 98.2 105 20 128/77 (94) 94 09/15/17 19:30 Room Air 09/15/17 19:30 103 09/15/17 18:33 Room Air 09/15/17 18:26 104 09/15/17 17:30 97.8 107 18 133/75 (94) 94 09/15/17 16:00 102 09/15/17 16:00 98.1 102 28 129/74 (92) 95 09/15/17 14:00 102 09/15/17 12:00 98.5 102 32 138/87 (104) 95 09/15/17 12:00 102 09/15/17 10:15 100 141/83 09/15/17 10:00 101 Result Diagram: 09/12/17224709/12/172247 A/P Problem List: (1) Atrial fibrillation with RVR ICD Codes: I48.91 - Unspecified atrial fibrillation Status: Acute Plan: 1. afib/flutter rvr. (past hx afib/flutter s/p ablations) ....still not controlled apparent episode of VT last night. 2. chronic systolic chf ef 40% 3. right arm phlebitis. possible cellulitis. old iv site plan: cardiology following. Dr Ortega and Clem afib/flutter not controlled. currently on coreg/cardizem/amiodarone/digoxin amiodarone gtt stopped yesterday and cardizem gtt stopped today monitor for control at least 24hrs before d/c. EPS planned for ?Mon thermia and abx for right arm. (2) Cardiomyopathy ICD Codes: I42.9 - Cardiomyopathy, unspecified Status: Chronic Geovanni Schulte MD Sep 16, 2017 09:08
--- NOTE | 2017-09-16 13:50 | PD.CARD.PN ---
Subjective Subjective Remarks sinus vs atrial tach on monitor at about 105; he feels reasonably well, he wants to stay for his ablation Wed. Objective Medications Current Medications Medications (Trade) Dose Ordered Sig/Rich Route Start Time Stop Time Status Last Admin (NS Flush) 2 ml UNSCH PRN IVF 09/12/17 22:45 09/15/17 19:58 (Aspirin Chew) 81 mg DAILY CHEW 09/13/17 09:00 09/16/17 08:35 (Eliquis) 5 mg BID PO 09/13/17 21:00 09/16/17 08:35 Miscellaneous Information Patient in critical care unit? Ass... Q361D .XX 09/13/17 20:00 (Chlorhexidine 2% Cloth) 3 pack DAILY@04 TOPICAL 09/14/17 04:00 09/18/17 04:01 (Chlorhexidine 2% Cloth) 3 pack UNSCH PRN TOPICAL 09/13/17 20:00 09/18/17 19:54 (Cardizem Cd) 240 mg DAILY PO 09/16/17 09:00 09/16/17 08:35 (Lanoxin) 0.25 mg DAILY PO 09/15/17 10:15 09/16/17 08:36 (Coreg) 6.25 mg BID PO 09/15/17 21:00 09/16/17 08:35 (Cordarone) 200 mg BID PO 09/15/17 21:00 09/16/17 08:35 Cefazolin Sodium 1000 mg/Sodium Chloride 100 ml @ 200 mls/hr Q8H IV 09/16/17 10:00 09/16/17 12:51 Vital Signs / I&O Vital Signs Date Time Temp Pulse Resp B/P (MAP) Pulse Ox O2 Delivery O2 Flow Rate FiO2 09/16/17 12:00 98.2 100 18 120/73 (89) 96 09/16/17 08:00 97.8 106 18 119/84 (96) 96 09/16/17 06:00 92 122/68 09/16/17 04:00 98.3 102 20 116/63 (80) 95 09/16/17 00:00 99.0 89 20 100/68 (79) 94 09/15/17 20:44 124 130/74 09/15/17 20:40 124 130/74 09/15/17 20:00 98.2 105 20 128/77 (94) 94 09/15/17 19:30 Room Air 09/15/17 19:30 103 09/15/17 18:33 Room Air 09/15/17 18:26 104 09/15/17 17:30 97.8 107 18 133/75 (94) 94 09/15/17 16:00 102 09/15/17 16:00 98.1 102 28 129/74 (92) 95 09/15/17 14:00 102 I/O 09/15/17 09/15/17 09/15/17 09/16/17 09/16/17 09/16/17 07:00 15:00 23:00 07:00 15:00 23:00 Intake Total 670 ml 200 ml 660 ml 480 ml Output Total 850 ml 350 ml 350 ml Balance -180 ml 200 ml 310 ml 130 ml Intake Oral 320 ml 660 ml 480 ml IV Total 350 ml 200 ml Output Urine Total 850 ml 350 ml 350 ml # Voids 1 # Bowel Movements 0 0 0 Physical Exam GENERAL: This is a well-nourished, well-developed patient, in no apparent distress. CARDIOVASCULAR:mildly rapid rate and, regular rhythm without murmurs, gallops, or rubs. RESPIRATORY: Clear to auscultation. Breath sounds equal bilaterally. No wheezes , rales, or rhonchi. GASTROINTESTINAL: Abdomen soft, non-tender, nondistended. Normal active bowel sounds MUSCULOSKELETAL: Extremities without clubbing, cyanosis, or edema. NEURO: Alert & Oriented x4 to person, place, time, situation. Moves all ext x4 Imaging Last Impressions Chest X-Ray 09/12/17 1233 Signed Impressions: Service Date/Time: Tuesday, September 12, 2017 22:44 - CONCLUSION: 1. Cardiomegaly. No acute pulmonary disease. Wero Main MD Assessment and Plan Problem List: (1) Atrial fibrillation with RVR ICD Codes: I48.91 - Unspecified atrial fibrillation Status: Acute Plan: on eli, will increase coreg to try for better rates, Dr. Nj planning on ablation Monday (per pt) (2) Cardiomyopathy ICD Codes: I42.9 - Cardiomyopathy, unspecified Status: Chronic Plan: current LVEF above 35-40, on bb, will try adding low dose entresto Eric Ellison MD Sep 16, 2017 13:50
[2017-09-16] MEDS: SACUBITRIL/VALSARTAN 24 MG-26 MG TAB PO SCH (20:58)
[2017-09-16] MEDS: SODIUM CHLORIDE 0.9% FLUSH 10 ML FLUSH IVF PRN (20:59)
[2017-09-16] MEDS: CARVEDILOL 12.5 MG TAB PO SCH (20:59)
--- NOTE | 2017-09-16 23:04 | RADRPT ---
EXAM DATE/TIME: 09/16/2017 22:15 [facility] COMPARISON: No previous studies available for comparison. INDICATIONS : Right arm swelling. MEDICAL HISTORY : Hypercholesterolemia. Hypertension. Atrial fibrillation. SURGICAL HISTORY : Cardiac ablations. Inguinal hernia repair. ENCOUNTER: Initial ACUITY: 3 days PAIN SCORE: 7/10 LOCATION: Right arm. FINDINGS: There is occlusive thrombus in the right basilic and cephalic veins in the distal upper arm and forea rm. Subclavian and axillary veins are patent. CONCLUSION: 1. Occlusive thrombus in distal upper arm and forearm involving the basilic and cephalic veins. Kel Kuhn MD on September 16, 2017 at 23:00 Board Certified Radiologist. This report was verified electronically.
[2017-09-17] VITALS (7 sets, daily range): BP systolic 96–118; BP diastolic 61–69; PULSE 66–108; RESP 18–19; TEMP 97.6–98.5; O2SAT 95–98
[2017-09-17] MEDS: ASPIRIN 81 MG CHEW TAB CHEW SCH (09:13)
[2017-09-17] MEDS: CARVEDILOL 12.5 MG TAB PO SCH ×2 (09:13→20:41)
[2017-09-17] MEDS: DIGOXIN 0.25 MG TAB PO SCH (09:13)
[2017-09-17] MEDS: SACUBITRIL/VALSARTAN 24 MG-26 MG TAB PO SCH ×2 (09:13→20:41)
[2017-09-17] MEDS: DILTIAZEM-CD 240 MG CAP ER PO SCH (09:13)
[2017-09-17] MEDS: AMIODARONE 200 MG TAB PO SCH ×2 (09:13→20:41)
[2017-09-17] MEDS: APIXABAN 5 MG TABLET PO SCH ×2 (09:13→20:41)
--- NOTE | 2017-09-17 10:35 | HHI.PR ---
Subjective Remarks right arm feels better. Objective Vitals heart irreg lung cta abd s/nt ext right forearm/AC erythema and swelling improved Vital Signs Date Time Temp Pulse Resp B/P (MAP) Pulse Ox O2 Delivery O2 Flow Rate FiO2 09/17/17 08:00 98.0 108 18 118/63 (81) 96 09/17/17 04:00 98.4 19 104/69 (81) 95 09/17/17 00:00 98.5 101 19 96/61 (73) 95 09/16/17 20:05 120 09/16/17 20:00 Room Air 09/16/17 20:00 98.3 102 17 119/65 (83) 95 09/16/17 16:00 99.0 102 18 105/61 (76) 95 09/16/17 12:00 98.2 100 18 120/73 (89) 96 A/P Problem List: (1) Atrial fibrillation with RVR ICD Codes: I48.91 - Unspecified atrial fibrillation Status: Acute Plan: 1. afib/flutter rvr. (past hx afib/flutter s/p ablations) ....still not controlled apparent episode of VT 2. chronic systolic chf ef 35-40% 3. right arm thrombophlebitis. possible cellulitis. old iv site plan: cardiology following. Dr Ortega and Clem...?EPS Wed. afib/flutter not controlled. currently on coreg/cardizem/amiodarone/digoxin entresto added per cardiology amiodarone gtt stopped and cardizem gtt stopped k thermia and abx for right arm. (2) Cardiomyopathy ICD Codes: I42.9 - Cardiomyopathy, unspecified Status: Chronic Geovanni Schulte MD Sep 17, 2017 10:35
--- NOTE | 2017-09-17 15:07 | PD.CARD.PN ---
Subjective Subjective Remarks he converted to NSR in the 60s this hour, feels well, no complaints Objective Medications Current Medications Medications (Trade) Dose Ordered Sig/Rich Route Start Time Stop Time Status Last Admin (NS Flush) 2 ml UNSCH PRN IVF 09/12/17 22:45 09/16/17 20:59 (Eliquis) 5 mg BID PO 09/13/17 21:00 09/17/17 09:13 Miscellaneous Information Patient in critical care unit? Ass... Q361D .XX 09/13/17 20:00 (Chlorhexidine 2% Cloth) 3 pack DAILY@04 TOPICAL 09/14/17 04:00 09/18/17 04:01 (Chlorhexidine 2% Cloth) 3 pack UNSCH PRN TOPICAL 09/13/17 20:00 09/18/17 19:54 (Cardizem Cd) 240 mg DAILY PO 09/16/17 09:00 09/17/17 09:13 (Cordarone) 200 mg BID PO 09/15/17 21:00 09/17/17 09:13 Cefazolin Sodium 1000 mg/Sodium Chloride 100 ml @ 200 mls/hr Q8H IV 09/16/17 10:00 09/17/17 09:12 (Coreg) 12.5 mg BID PO 09/16/17 21:00 09/17/17 09:13 (Entresto 24-26 Mg) 1 tab BID PO 09/16/17 21:00 09/17/17 09:13 Vital Signs / I&O Vital Signs Date Time Temp Pulse Resp B/P (MAP) Pulse Ox O2 Delivery O2 Flow Rate FiO2 09/17/17 12:00 97.9 100 18 112/65 (81) 95 09/17/17 08:00 98.0 108 18 118/63 (81) 96 09/17/17 04:00 98.4 19 104/69 (81) 95 09/17/17 00:00 98.5 101 19 96/61 (73) 95 09/16/17 20:05 120 09/16/17 20:00 Room Air 09/16/17 20:00 98.3 102 17 119/65 (83) 95 09/16/17 16:00 99.0 102 18 105/61 (76) 95 I/O 10/21/17 1009/16/17 09/17/17 09/17/17 09/17/17 07:00 15:00 23:00 07:00 15:00 23:00 Intake Total 480 ml 720 ml 650 ml Output Total 350 ml Balance 130 ml 720 ml 650 ml Intake Oral 480 ml 720 ml 650 ml Output Urine Total 350 ml # Voids 2 2 # Bowel Movements 0 0 Physical Exam GENERAL: This is a well-nourished, well-developed patient, in no apparent distress. CARDIOVASCULAR:reg rate and, regular rhythm without murmurs, gallops, or rubs. RESPIRATORY: Clear to auscultation. Breath sounds equal bilaterally. No wheezes , rales, or rhonchi. GASTROINTESTINAL: Abdomen soft, non-tender, nondistended. Normal active bowel sounds MUSCULOSKELETAL: Extremities without clubbing, cyanosis, or edema. NEURO: Alert & Oriented x4 to person, place, time, situation. Moves all ext x4 Imaging Last Impressions Upper Extremity Ultrasound 09/16/17 0000 Signed Impressions: Service Date/Time: Saturday, September 16, 2017 22:15 - CONCLUSION: 1. Occlusive thrombus in distal upper arm and forearm involving the basilic and cephalic veins. Kel Kuhn MD Chest X-Ray 09/12/17 2243 Signed Impressions: Service Date/Time: Tuesday, September 12, 2017 22:44 - CONCLUSION: 1. Cardiomegaly. No acute pulmonary disease. Wero Main MD Assessment and Plan Problem List: (1) Atrial tachycardia ICD Codes: I47.1 - Supraventricular tachycardia Plan: presumptive, converted to NSR, if he stays in NSR would favor d/c and potential ablation vs med mgt can be discussed as outpatient. (2) Atrial fibrillation with RVR ICD Codes: I48.91 - Unspecified atrial fibrillation Status: Acute Plan: on eliquis (3) Cardiomyopathy ICD Codes: I42.9 - Cardiomyopathy, unspecified Status: Chronic Plan: current LVEF above 35-40, on bb, added Eric Billy MD Sep 17, 2017 15:07
[2017-09-18] VITALS (8 sets, daily range): BP systolic 95–127; BP diastolic 52–82; PULSE 70–102; RESP 16–20; TEMP 97.5–98.7; O2SAT 96–99
--- NOTE | 2017-09-18 08:08 | MB ---
cc: LEÓN PROCTOR MD,STEPHANIE MELENDEZ,KELSIE Merlos M.D. DATE OF CONSULTATION: 09/17/2017 REASON FOR CONSULTATION: Management of atrial flutter with tachycardia. REFERRING PHYSICIANS Dr. Franca Ortega HISTORY OF PRESENT ILLNESS Ms. Simons is a 67-year-old gentleman well-known to me presented to [place] [facility] with tachycardia and dyspnea. He did have ablation done by me twice back in 2009 was ablation for atrial fibrillation and atrial flutter in the left atrial appendage. So far he did well until last year when he had an episode of atrial fibrillation. About a few days ago he had recurrence of palpitations along with dyspnea and came to the ER. He was noted to have atrial flutter with tachycardia. So far he has tried multiple medications including amiodarone and Cardizem drip with persistent tachycardia. He is symptomatic with impaired dyspnea, fatigue and palpitations. Currently he is on Eliquis. He did have cardiomyopathy. Recent echocardiogram showed EF of 35-40%. I did review the EKG, so far it is consistent with atrial flutter. He also has hyperlipidemia. PAST MEDICAL HISTORY: As above. ALLERGIES: NO KNOWN DRUG ALLERGIES. FAMILY HISTORY: Not significant for CAD at an early age. SOCIAL HISTORY Does not smoke. He drinks alcohol on social occasions. PHYSICAL EXAMINATION: The patient has a blood pressure of 110/70 with pulse in the 100s with underlying atrial flutter, O2 sat is 93-96%, afebrile. HEENT: Normal oral exam. PERRLA. ENDOCRINE: There is no thyroid enlargement. LYMPHATICS: He has some lymphadenopathy. RESPIRATORY: Decreased breath sounds bilaterally but no crackles. CARDIOVASCULAR: Regular rhythm, intermittent tachycardia. No loud murmurs. GI: Active bowel sounds all four quadrants. : Deferred. MUSCULOSKELETAL: Range of motion intact. SKIN: No ecchymosis. PSYCH: Patient in good mood, good judgment. TESTS: EKG consistent with atrial flutter. History of atrial fibrillation and atrial flutter status post ablation x2 back in 2009. Dyspnea and palpitations. Cardiomyopathy. PLAN I did go over all the treatment options. I readjusted his medications. I added Coreg and discontinued the digoxin. If he has persistent tachycardia, I do think ablation is reasonable. I did discuss the risks and benefits of the procedure with the patient which include but are not limited to infection, bleeding, stroke, perforation of heart requiring pericardial effusion, open heart surgery. He has given consent for MYRNA and ablation including atrial fibrillation, atrial flutter. I will continue anticoagulation. I will readjust his cardiomyopathy meds. I will see how he does mwty-igk-zliuvtw with atrial flutter and rate control. I would like to thank Dr. Ortega and Dr. Melendez for letting me participate in the care of this patient. MD JUSTIN Watson/AUNG /11:30 AM /8:04 AM MTDD
[2017-09-18] MEDS: AMIODARONE 200 MG TAB PO SCH ×2 (09:21→21:50)
[2017-09-18] MEDS: DILTIAZEM-CD 240 MG CAP ER PO SCH (09:21)
[2017-09-18] MEDS: SACUBITRIL/VALSARTAN 24 MG-26 MG TAB PO SCH (09:22)
[2017-09-18] MEDS: APIXABAN 5 MG TABLET PO SCH ×2 (09:22→21:50)
[2017-09-18] MEDS: CARVEDILOL 12.5 MG TAB PO SCH ×2 (09:22→21:51)
--- NOTE | 2017-09-18 13:33 | HHI.PR ---
Subjective Remarks Pt still periodically running in the 130-140's on telemetry No new complaints. Objective Vitals Vital Signs Date Time Temp Pulse Resp B/P (MAP) Pulse Ox O2 Delivery O2 Flow Rate FiO2 09/18/17 12:07 98.3 97 18 96/68 (77) 96 09/18/17 11:55 98 Room Air 09/18/17 08:21 97.5 102 18 127/77 (94) 98 09/18/17 04:00 98.7 97 16 112/68 (83) 96 09/18/17 00:00 97.9 70 16 95/52 (66) 97 09/17/17 20:00 97.8 84 18 115/68 (84) 96 09/17/17 19:55 80 09/17/17 19:29 Room Air 09/17/17 19:29 Room Air 09/17/17 16:00 97.6 66 18 109/62 (78) 98 Imaging Last Impressions Upper Extremity Ultrasound 09/16/17 0000 Signed Impressions: Service Date/Time: Saturday, September 16, 2017 22:15 - CONCLUSION: 1. Occlusive thrombus in distal upper arm and forearm involving the basilic and cephalic veins. Kel Kuhn MD Chest X-Ray 09/12/17 2243 Signed Impressions: Service Date/Time: Tuesday, September 12, 2017 22:44 - CONCLUSION: 1. Cardiomegaly. No acute pulmonary disease. Wero Main MD Objective Remarks General: NAD, AAOx3 Chest: CTA Cardiac: Irregularly irregular Abd: +BS, soft ND/NT Ext: Right forearm/AC erythema and swelling improved A/P Problem List: (1) Atrial fibrillation with RVR ICD Codes: I48.91 - Unspecified atrial fibrillation Status: Acute Plan: 1. A.fib/flutter with RVR. (past hx A.fib/flutter s/p ablations in 2009), still not well controlled, and pt has had apparent episode of VT - Cardiology following. Dr Ortega and Dr. Nj - Possible EPS Wed. - Amiodarone gtt stopped and Cardizem gtt stopped - A. fib/flutter not controlled, still running in the 130-140's periodically - Pt currently on Coreg/Cardizem/Amiodarone 2. chronic systolic CHF, EF 35-40% - Entresto added per cardiology but pts BP is running low, will stop this for now. 3. Right arm thrombophlebitis, possible cellulitis, related to old IV site - K-thermia and abx for right arm. (2) Cardiomyopathy ICD Codes: I42.9 - Cardiomyopathy, unspecified Status: Chronic Assessment and Plan Patient examined. Assessment and plan formulated with Jeni Titus PA-C. I agree with the above. Jeni Titus Sep 18, 2017 13:33 Ok Luke DO Sep 20, 2017 20:49
[2017-09-18] MEDS: SODIUM CHLORIDE 0.9% FLUSH 10 ML FLUSH IVF PRN (21:51)
[2017-09-19] VITALS (10 sets, daily range): BP systolic 99–139; BP diastolic 62–78; PULSE 74–150; RESP 16–20; TEMP 97.6–98.2; O2SAT 96–99
[2017-09-19 07:23] LABS: AUTOMATED NEUTROPHIL # 3.7 TH/MM3 (1.8-7.7); BASOPHIL # 0.1 TH/MM3 (0-0.2); BASOPHIL % 0.9 % (0.0-2.0); EOSINOPHIL # 0.2 TH/MM3 (0-0.4); HEMO FLAGS DIFF FINAL; LYMPH % 28.4 % (9.0-44.0); LYMPHOCYTE # 1.8 TH/MM3 (1.0-4.8); MEAN CELL VOLUME 92.9 FL (80.0-100.0); MEAN CORPUSCULAR HEMOGLOBIN 31.3 PG (27.0-34.0); MEAN CORPUSCULAR HGB CONC 33.7 % (32.0-36.0); MONO % 9.7 % (0.0-8.0); PLATELET COUNT 257 TH/MM3 (150-450); RED BLOOD COUNT 4.95 MIL/MM3 (4.50-5.90); RED CELL DISTRIBUTION WIDTH 13.9 % (11.6-17.2); WHITE BLOOD COUNT 6.4 TH/MM3 (4.0-11.0)
[2017-09-19 07:46] LABS: POTASSIUM 4.1 MEQ/L (3.5-5.1)
[2017-09-19 07:47] LABS: BICARBONATE 24.4 MEQ/L (21.0-32.0)
[2017-09-19] MEDS ORDERED: HEPARIN SODIUM - IV 10,000 UNITS/10 ML VIAL ONE ×5 (09:11→14:48)
[2017-09-19] MEDS ORDERED: HEPARIN-D5W 25,000 U/250 ML 250 ML ONE (09:11)
[2017-09-19] MEDS: DILTIAZEM-CD 240 MG CAP ER PO SCH (09:13)
[2017-09-19] MEDS: CARVEDILOL 12.5 MG TAB PO SCH (09:13)
[2017-09-19] MEDS: AMIODARONE 200 MG TAB PO SCH (09:13)
--- NOTE | 2017-09-19 10:42 | HHI.PR ---
Subjective Remarks Pt still with palpitations Going for EPS today Objective Vitals Vital Signs Date Time Temp Pulse Resp B/P (MAP) Pulse Ox O2 Delivery O2 Flow Rate FiO2 09/19/17 08:07 97.6 101 18 133/77 (95) 97 09/19/17 04:00 98.2 99 20 105/64 (78) 96 09/19/17 00:00 98.2 75 20 99/62 (74) 99 09/18/17 20:45 Room Air 09/18/17 20:17 100 09/18/17 20:00 98.1 96 18 125/82 (96) 96 09/18/17 18:21 101 09/18/17 16:07 98.1 72 20 126/61 (82) 99 09/18/17 12:07 98.3 97 18 96/68 (77) 96 09/18/17 11:55 98 Room Air Result Diagram: 09/19/17 0605 09/19/17 0605 Other Results Laboratory Tests Test 09/19/17 06:05 White Blood Count 6.4 TH/MM3 Red Blood Count 4.95 MIL/MM3 Hemoglobin 15.5 GM/DL Hematocrit 46.0 % Mean Corpuscular Volume 92.9 FL Mean Corpuscular Hemoglobin 31.3 PG Mean Corpuscular Hemoglobin Concent 33.7 % Red Cell Distribution Width 13.9 % Platelet Count 257 TH/MM3 Mean Platelet Volume 8.7 FL Neutrophils (%) (Auto) 58.0 % Lymphocytes (%) (Auto) 28.4 % Monocytes (%) (Auto) 9.7 % Eosinophils (%) (Auto) 3.0 % Basophils (%) (Auto) 0.9 % Neutrophils # (Auto) 3.7 TH/MM3 Lymphocytes # (Auto) 1.8 TH/MM3 Monocytes # (Auto) 0.6 TH/MM3 Eosinophils # (Auto) 0.2 TH/MM3 Basophils # (Auto) 0.1 TH/MM3 CBC Comment DIFF FINAL Differential Comment Blood Urea Nitrogen 14 MG/DL Creatinine 0.94 MG/DL Random Glucose 102 MG/DL Calcium Level 8.9 MG/DL Sodium Level 138 MEQ/L Potassium Level 4.1 MEQ/L Chloride Level 105 MEQ/L Carbon Dioxide Level 24.4 MEQ/L Anion Gap 9 MEQ/L Estimat Glomerular Filtration Rate 81 ML/MIN Imaging Last Impressions Upper Extremity Ultrasound 09/16/17 0000 Signed Impressions: Service Date/Time: Saturday, September 16, 2017 22:15 - CONCLUSION: 1. Occlusive thrombus in distal upper arm and forearm involving the basilic and cephalic veins. Kel Kuhn MD Chest X-Ray 09/12/17 2243 Signed Impressions: Service Date/Time: Tuesday, September 12, 2017 22:44 - CONCLUSION: 1. Cardiomegaly. No acute pulmonary disease. Wero Main MD Objective Remarks General: NAD, AAOx3 Chest: CTA Cardiac: Irregularly irregular Abd: +BS, soft ND/NT Ext: Right forearm/AC erythema and swelling, improved A/P Problem List: (1) Atrial fibrillation with RVR ICD Codes: I48.91 - Unspecified atrial fibrillation Status: Acute Plan: 1. A.fib/flutter with RVR. (past hx A.fib/flutter s/p ablations in 2009), still not well controlled, and pt has had apparent episode of VT - Cardiology following. Dr Ortega and Dr. Nj - EPS today - Amiodarone gtt stopped and Cardizem gtt stopped - A. fib/flutter not controlled, still running in the 130-140's periodically - Pt currently on Coreg/Cardizem/Amiodarone - Pt is on Eliquis 5mg po BID 2. Chronic systolic CHF, EF 35-40% - Entresto added per cardiology but pts BP is running low, stopped on 09/18. 3. Right arm thrombophlebitis, possible cellulitis, related to old IV site - K-thermia and Cefazolin (started 09/16) for right arm. - Improving clinically (2) Cardiomyopathy ICD Codes: I42.9 - Cardiomyopathy, unspecified Status: Chronic Assessment and Plan Patient examined. Assessment and plan formulated with Jeni Titus PA-C. I agree with the above. Jeni Titus Sep 19, 2017 10:42 Ok Luke DO Sep 20, 2017 20:50
[2017-09-19] MEDS: APIXABAN 5 MG TABLET PO SCH ×2 (12:00→21:23)
[2017-09-19] MEDS ORDERED: LEVOFLOXACIN 500 MG PREMIX INJ 100 ML IV ONE (13:38)
[2017-09-19] MEDS ORDERED: ISOPROTERENOL HCL 1 MG/5 ML AMP ONE (14:04)
[2017-09-19] MEDS ORDERED: FUROSEMIDE 40 MG/4 ML VIAL ONE (17:11)
[2017-09-19] MEDS ORDERED: PROTAMINE SULFATE 50 MG/5 ML VIAL ONE (17:11)
[2017-09-19] MEDS ORDERED: METOCLOPRAMIDE HCL 10 MG/2 ML VIAL IV PUSH PRN (17:30)
[2017-09-19] MEDS ORDERED: LORazepam 2 MG/ML VIAL IV PUSH PRN (17:30)
[2017-09-19] MEDS ORDERED: ONDANSETRON HCL 4 MG/2 ML VIAL IV PUSH PRN (17:30)
[2017-09-19] MEDS ORDERED: BACITRACIN OINT 0.9 GM PKT TOP ONE (17:30)
[2017-09-19] MEDS ORDERED: LIDOCAINE HCL 1% 50 ML VIAL INFIL PRN (17:30)
[2017-09-19] MEDS ORDERED: SODIUM CHLOR 0.9% 250 ML INJ 250 ML IV PRN (17:30)
[2017-09-19] MEDS ORDERED: oxyCODONE/ACETAMINOPHEN 5 MG/325 MG TAB PO PRN ×2 (17:30)
[2017-09-19] MEDS ORDERED: ATROPINE SULFATE 1 MG/ML VIAL IV PUSH PRN (17:30)
--- NOTE | 2017-09-19 17:51 | CATHPROC ---
[facility] HIS Report Study Information Study Number Admission Scheduled Start Study Start [id number] Sep 13 2017 1:55AM 09/19/2017 Sep 19 2017 9:03AM [place] Service Electrophysiology Study Admit Source Facility Department Other [facility] - Geophysical Observer Physician and Clinical Staff Initial Brenda Tafoya Client Services Assistant Rosaura Bae,MANAGER OB TECH2 Client Services Assistant Tia Alexandre,METAL SPRAY OPERATOR Client Services Assistant Kavon Alvarado,RHETT Other Anesthesia, CLIENT CARE COORDINATOR Recorder Cindi Duval BSRN Scrub Matthias MaierRT(R) Procedures Performed Procedure Location (Site) Vessel Name ICE CATHETER INSERT RA Atruim Wire insertion Fem Vein (left) Femoral Vein Equipment Time Windows Security Analyst Description Size Mfg Part Number Used/Scraped [id number] 09:05 ARGON/MAXXIM DRAPE, BRACHIAL REINFORCED * Used *[id number] BIOSENSE BLANCO [id number] 09:05 CATHETER, ACUNAV FR10 ICE FR 10 Used INC. *[id number] [employer] BLANCO CATHETER, LASSO 10 POLE 20MM [id number] 09:05 FR 7 Used INC. FIX *[id number] BIOSENSE BLANCO 09:05 SET, TUBING COOLFLOW * [id number] Used INC. [employer]/ EP 09:05 KIT, TRANSDUCER / AFIB [id number] Used PACER WIRE, GUIDE AMPLATZ STIFF [id number] 09:05 COOK/PACER 3MMJ Used 180CM *[id number] 09:05 CORDIS/PACER SHEATH, FR10 POOJA 11CM FR 10 [id number] Used 09:05 CORDIS/PACER SHEATH, FR9 POOJA 11CM FR 9 [id number] Used 09:05 CORDIS/PACER SHEATH, FR9 POOJA 11CM FR 9 [id number] Used [id number] 09:05 [employer] IND[employer]ES PACK, CCL CUSTOM * Used *[id number] 09:05 [employer] PACER LEMA, LIMB * 2530 *[id number] Used [id number] 09:05 [employer] MEDICAL SHEATH, FR4.5 PRELUDE 11CM FR 4.5 Used [id number] 09:05 [employer] MEDICAL PACER SHEATH, FR8.5 MERIT 11CM FR 8.5 [id number] Used 09:05 [employer] MEDICAL PACER SHEATH, FR8.5 MERIT 11CM FR 8.5 [id number] Used 09:05 [employer] MEDICAL PACER SHEATH, FR8.5 MERIT 11CM FR 8.5 [id number] Used PROBE COVER, STERILE [id number] 09:05 [employer] MEDICAL * Used ULTRASOUND W/ GEL *[id number] TUBING, PRESSURE MONITORING [id number] 09:05 NAMIC PACER 72" Used 72" *[id number] TUBING, PRESSURE MONITORING [id number] 09:05 NAMIC PACER 72" Used 72" *[id number] TUBING, PRESSURE MONITORING [id number] 09:05 NAMIC PACER 72" Used 72" *[id number] 14:00 [employer]COMED OMNIPAQUE, 300 MG, 50ML 50ML [id number] Used 09:05 [employer]COMED OMNIPAQUE, 350 MG, 50ML 50ML [id number] Used [id number] 09:05 [facility] BLANKET,WARM AIR CCL * Used *[id number] 167386 13:42 [employer] MED[employer] CATHETER, FR7 DUODECA FR 7 Used *[id number] 998198 09:05 [employer] CATHETER, FR7 DUODECA FR 7 Used *[id number] CATHETER, FR [address]BL[address] 15:41 [employer] MEDICAL FR 8 [id number] Used FLEXABILITY 09:05 [employer] ELECTRODE KIT, JOE X SURFACE * [id number] Used 09:05 [facility] MED[facility] NEEDLE, BRK ADULT 18GA. 71CM 71CM [id number] Used 13:42 [facility] MEDICAL NEEDLE, BRK ADULT 18GA. 71CM 71CM [id number] Used 13:43 [facility] [employer] [facility] SET, COOL [place]INT TUBING 71964 *[id number] Used 13:47 [facility] SET, COOL POINT TUBING 82369 *[id number] Used 13:41 [facility] MED[facility] SHEATH, FR8 ALVAREZ [id number] Used 09:05 [facility] SHEATH, FR8 ALVAREZ [id number] Used 09:05 [facility] SHEATH, FR8.5 SL0 [id number] Used 13:41 [facility] SHEATH, FR8.5 SL0 927731 Used CATHETER, ACUNAV FR10 ICE [id number] 15:16 LILIANE FR 10 Used (LILIANE) *[id number] [employer] MEDICAL 15:33 SHEATH, FR11 TURUMO FR 11 [id number] Used COMPANY [facility] PAD, ELECTROSURGICAL 09:05 * [id number] *[id number] Used SURGICAL GROUNDING (BLUE) [facility] PAD, ELECTROSURGICAL 09:05 * [id number] *[id number] Used SURGICAL GROUNDING (BLUE) [facility] PAD, ELECTROSURGICAL 09:05 * E7507 *[id number] Used SURGICAL GROUNDING ORANGE 09:05 [employer] PENCIL, ELECTROSURGICAL * [id number] Used Equipment Model, Serial, Lot Number and Expiration Data Description Model Number Serial Number Lot Number Expiration Date SET, COOL POINT TUBING [id number] 07-27-2018 SET, [employer]OL PO[employer] TUBING [id number] 07-27-2018 History: Current Medications Medication Dosage/Unit Route Frequency Last Date/Time Taken Statins (any) Beta Jaziel ELIQUIS History: Allergies Allergy Reaction NKDA History: Risk Factors Hypertension Dyslipidemia Previous Heart Failure Yes Yes Yes Chronic Lung Disease History: Symptoms/Diagnosis Selection Items NUGENT Palpitations SOB History: Other Disease Selection Items CHF HTN Labs Hgb (g/dl) Hct (%) RBC (MIL/MM3) WBC (l/cumm) Platelets (thousands) 11.60-17.00 35.00-51.00 4.00-5.90 4.00-11.00 150.00-450.00 15.5 46 4.9 6.4 257 Glucose (mg/dl) BUN (mg/dl) Creatinine (mg/dl) BUN:Creatinine (1:x) 74.00-106.00 7.00-18.00 0.50-1.30 10.00-20.00 102 9 14.0 0.6 Na (meq/l) K (meq/l) Cl (meq/l) CO2 (mmol/L) Ca (mg/dl) 136.00-145.00 3.50-5.10 98.00-107.00 21.00-32.00 8.50-10.10 138 4.1 105 24.4 8.9 INR (PTT:PT) 0.90-1.10 0.9 Medication Medication Total Dose (Bolus/Oral) Medication Total Dosage/Unit HEPARIN 55341 units LASIX 20 mg PROTAMINE 45 mg Medications (Bolus/Oral) Medication Time Given Dosage/Unit Administered By Reason HEPARIN 09/19/2017 3:16:27 PM 05623 units Anesthesia, CLIENT CARE COORDINATOR As per physicians verbal order 63053 units HEPARIN given in lab by Anesthesia, CLIENT CARE COORDINATOR via Peripheral IV. Ordered by Brenda Nj. [place] son: As per physicians verbal order. RT IJ PROTAMINE 09/19/2017 5:11:05 PM 45 mg Anesthesia, CLIENT CARE COORDINATOR 45 mg PROTAMINE given in lab by Anesthesia, CLIENT CARE COORDINATOR. Ordered by Brenda Nj. LASIX 09/19/2017 5:11:21 PM 20 mg Anesthesia, CLIENT CARE COORDINATOR 20 mg LASIX given in lab by Anesthesia, CLIENT CARE COORDINATOR via Peripheral IV. Ordered by Brenda Nj. Medication (Drip) Medication Time Given Dosage/Unit Concentration/Unit Diluent (ml) Solution HEPARIN DRIP 09/19/2017 3:34:00 PM 1300 units/hr 86015 units 250 D5W 1300 units/hr HEPARIN DRIP given in lab by Anesthesia, CLIENT CARE COORDINATOR via Peripheral IV. Pump/Drip Flow = 13 ml /hr [place] [address] units in 250 ml. Ordered by Brenda Nj. Reason: As per physicians verbal order. left femoral vein ISUPREL 09/19/2017 4:59:50 PM 20 mcg/min 1 mg 250 NaCl .9 20 mcg/min ISUPREL given in lab by Primitivo, ABHIJEET via Peripheral IV. Pump/Drip Flow = 300 ml/hr usi ng NaCl .9 with a concentration of 1 mg in 250 ml. Ordered by Brenda Nj. IV Solutions 09/19/2017 1:46:18 PM 0 mL (IV) NaCl .9 IV Solutions given in lab by Cindi Duval BSRN in Left Forearm via Peripheral IV. Pump/Drip Flow = 50 ml/hr using NaCl .9. Ordered by Brenda Nj. Reason: As per physicians verbal order. LEVAQUIN 09/19/2017 2:18:00 PM 100 mL/hr 500 100 NaCl .9 100 mL/hr LEVAQUIN given in lab by Primitivo, ABHIJEET in Left Hand via Peripheral IV. Pump/Drip Flow = 0 ml/hr using NaCl .9 with a concentration of 500 in 100 ml. Ordered by Brenda Nj. Reason: As per physicians verbal order. Initial Case Assessment Cardiovascular HR NIBP Chest Pain 96 166/82 0 Edema Present Skin color Skin None Normal Warm Dry Neurological State Oriented to time-place- Alert Moves all extremities person Respiration - General Respiration Rate SpO2 (%) (B/min) 20 97 Chronological Log Time Study Chronological Log 13:28:06 Patient arrived via Bed. 13:28:08 Patient Name, D.O.B, / Armband Verified By R.N. 13:28:11 Consent signed by the physician and the patient and verified by the Geophysical Observer staff. 13:28:12 Pre-op and post- op instructions given; patient acknowledges understanding of instructions. 13:28:14 Verbal Stimulation=2 Physical Stimulation=2 Airway=2 Respiration=2 TOTAL=10. (0=absent, 1=l imited, 2=present) 13:39:56 Presedation assessment performed by Geophysical Observer RN. 13:40:06 Immediate Presedation assesment performed by physician. 13:40:09 Patient has been NPO for More than 6Hrs. 13:40:11 Skin Breakdown- sore right arm 13:45:58 Patient Warmer Placed on the Table. 13:46:01 Disposable Defibrillator Pads Placed On Patient. 13:46:03 Lauren Prominences Protected 13:46:05 A # 20 IV was noted in the Forearm (left). Grade = ~GRADE~ IV Solutions given in lab by Cindi Duval BSRN in Left Forearm via Peripheral IV. Pump/Dri p Flow = 50 ml/hr using 13:46:18 NaCl .9. Ordered by Brenda Nj. Reason: As per physicians verbal order. 13:46:50 History and physical on the chart or being dictated. Assessment: Initial Case, HR=96 BPM, VHBJ=547/82 mmhg, Chest Pain=0, Edema=None, Color=Normal, Skin = Warm, Dry 13:46:53 Neurological: State=Alert, Ox3, THOMSON Respiration: Resp=20 B/min, SpO2=97 % 13:49:01 Table restraints applied according to hospital policy 13:49:09 Right groin prepped with 2% chlorhexidine, and draped after a 3 min. waiting time. 13:49:12 Left groin prepped with 2% chlorhexidine, and draped after a 3 min. waiting time. 13:49:19 Neck and shoulders prepped with 2% chlorhexidine, and draped after a 3 min. waiting time. 13:49:59 Anesthesia at bedside. Assumes care of patient. Amber CLIENT CARE COORDINATOR 100 mL/hr LEVAQUIN given in lab by Anesthesia, CLIENT CARE COORDINATOR in Left Hand via Peripheral IV. Pump/Drip F low = 0 ml/hr using 14:18:00 NaCl .9 with a concentration of 500 in 100 ml. Ordered by Brenda Nj. Reason: As per physici ans verbal order. 14:47:00 Patient intubated by anesthesia. 14:47:16 Indwelling uretheral catheter inserted by Cindi Duval RN with clear yellow urine noted. Time Out. Correct patient, procedure, procedure equipment, site and side verified with physicia n present. Time 14:54:47 concurred by MD, individual staff and CLIENT CARE COORDINATOR. Time Out #2 - Consents verified, patient in correct position, all results are labled and displa yed, safety precautions 14:54:53 taken, antibiotics administered. Time out concurred by MD, individual staff and CLIENT CARE COORDINATOR in procedu re 14:54:56 Case Start 14:56:05 MYRNA begun at bedside by Dr. Nj 15:00:00 MYRNA complete. 15:07:11 Vascular access was obtained in the Fem Vein (right). 15:07:19 Vascular access was obtained in the Fem Vein (right). 15:07:23 A SHEATH, FR8.5 MERIT 11CM FR 8.5 was advanced into the Fem Vein (right) using the Percutan eous technique. 15:07:41 A SHEATH, FR8.5 MERIT 11CM FR 8.5 was advanced into the Fem Vein (right) using the Percutan eous technique. 15:08:16 Vascular access was obtained in the Fem Vein (left). 15:08:25 A SHEATH, FR10 POOJA 11CM FR 10 was advanced into the Fem Vein (left) using the Percutaneo us technique. 15:09:18 Vascular access was obtained in the Jugular Vein (right). 15:10:01 A SHEATH, FR8.5 MERIT 11CM FR 8.5 was advanced into the Jugular Vein (right) using the Perc utaneous technique. A CATHETER, FR7 DUODECA FR 7 was advanced vis Jugular Vein (right) and placed in the CS. Placem ent was visually 15:12:49 confirmed under fluoroscopy. HRA 15:15:54 CATHETER, ACUNAV FR10 ICE (LILIANE) FR 10 Was Postioned. 22657 units HEPARIN given in lab by Anesthesia, CLIENT CARE COORDINATOR via Peripheral IV. Ordered by Nj, Huijia n. Reason: As per 15:16:27 physicians verbal order. RT IJ 15:17:19 A WIRE, GUIDE AMPLATZ STIFF 180CM 3MMJ was inserted via Fem Vein (left). 15:17:30 The previous wire was exchanged for a wire. LETTY 15:18:49 BRK needle inserted into Alvarez. 15:20:21 Transseptal with BRK 15:20:40 Activated Clotting Time Drawn 15:29:36 ACT (Normal Range 90-180) = 404 A SHEATH, FR11 TURUMO FR 11 was exchanged in the Fem Vein (left). This was necessary in order t o accomodate a 15:33:22 larger catheter. 1300 units/hr HEPARIN DRIP given in lab by Anesthesia, CLIENT CARE COORDINATOR via Peripheral IV. Pump/Drip Flow = 13 ml/hr using 15:34:00 [place] [address] units in 250 ml. Ordered by Brenda Nj. Reason: As per physicians verbal order. left femoral vein 15:34:43 CATHETER, ACUNAV FR10 ICE ([employer]) FR 10 Was Postioned. A CATHETER, LASSO 10 POLE 20MM FIX FR 7 was advanced vis Fem Vein (left) and placed in the LA. Placement was 15:36:34 visually confirmed under fluoroscopy. 15:37:00 Mapping in progress. A CATHETER, FR 8 ABLATION FLEXABILITY FR 8 was advanced vis Fem Vein (right) and placed in the HIS. Placement 15:40:49 was visually confirmed under fluoroscopy. 15:41:13 Reference ECG taken 15:43:15 Ablation catheter removed. BRK needle inserted. 15:46:36 BRK needle removed. 15:47:01 Amplatz wire inserted. 15:47:48 BRK needle inserted. 15:48:51 transseptal 15:49:00 BRK needle removed. A CATHETER, FR 8 ABLATION FLEXABILITY FR 8 was advanced vis Fem Vein (right) and placed in the LA. Placement 15:51:05 was visually confirmed under fluoroscopy. 16:01:41 Activated Clotting Time Drawn 16:05:13 Ablation begun. 16:08:00 ACT (Normal Range 90-180) = 377 16:29:41 Activated Clotting Time Drawn 16:37:38 ACT (Normal Range 90-180) = 398 16:48:24 Ablation cath to R atrium 20 mcg/min ISUPREL given in lab by Anesthesia, CLIENT CARE COORDINATOR via Peripheral IV. Pump/Drip Flow = 300 ml/ hr using NaCl .9 16:59:50 with a concentration of 1 mg in 250 ml. Ordered by Brenda Nj. 17:08:41 ablation in progress 17:09:18 isuprel off 17:09:32 Catheters was removed A SHEATH, FR9 POOJA 11CM FR 9 was exchanged in the Fem Vein (right). This was necessary in ord er to achieve 17:10:28 vascular hemostasis. A SHEATH, FR9 POOJA 11CM FR 9 was exchanged in the Fem Vein (right). This was necessary in ord er to achieve 17:10:55 vascular hemostasis. 17:11:05 45 mg PROTAMINE given in lab by Anesthesia, CLIENT CARE COORDINATOR. Ordered by Brenda Nj. 17:11:21 20 mg LASIX given in lab by Anesthesia, CLIENT CARE COORDINATOR via Peripheral IV. Ordered by Brenda Nj. 17:12:05 catheter removed from r IJ 17:13:03 Catheter(s) removed without difficulty 17:13:09 Case End 17:20:38 ACT (Normal Range 90-180) = 146 17:21:23 Sheath removed; pressure applied to access site. 17:50:39 PACU called. Spoke to mobley 18:00:00 Patient moved to [facility] (formerly [facility]3] End Study - Contrast Media Used In Study Contrast Total Opened (mL) Total Used (mL) Total Wasted (mL) Unspecified 0 0 0 End Study - Maximum Contrast Load Max Contrast Load (mL) 34.6 End Study - Radiation Exposure Fluoro Time (minutes) 1.9 End Study - Patient Disposition Complications Transferred To Interventional Outcome No Telemetry Bed successful
[2017-09-19] MEDS ORDERED: DO NOT ADM ANY ANTICOAGULANT DRUGS PRN (18:45)
[2017-09-19] MEDS: CARVEDILOL 3.125 MG TAB PO SCH (21:23)
--- NOTE | 2017-09-19 21:32 | EKG ---
Date Performed: 09/19/2017 Time Performed: 18:54:14 PTAGE: 67 years EKG: Sinus rhythm WITH FIRST DEGREE AV BLOCK LEFT BUNDLE BRANCH BLOCK ABNORMAL ECG PREVIOUS TRACING : 09/15/2017 10.40 Compared to prior tracing no significant change DOCTOR: Theresa Michaels Interpretating Date/Time 09/19/2017 21:30:28
[2017-09-20] VITALS (11 sets, daily range): BP systolic 122–125; BP diastolic 72–84; PULSE 66–78; RESP 16–17; TEMP 97.5–98; O2SAT 94–99
--- NOTE | 2017-09-20 08:15 | MR ---
cc: STEPHANIE ORTEGA MD,LEÓN SCHULTE,KELSIE Merlos M.D. DATE OF : 1950 DATE: 09/19/2017 REFERRING PHYSICIAN: Dr. Jordan Schulte CLINICAL INDICATION The patient is a 67 year-old gentleman with symptomatic atrial flutter and atrial fibrillation with persistent tachycardia. So far the patient has tried amiodarone with persistent tachycardia. The patient has had ablation pass for atrial fibrillation, thus the patient came in for ablation redo. PROCEDURE IN DETAIL The patient was sedated by anesthesiologist using general anesthesia. The patient was prepped and draped in sterile fashion. Bilateral femoral vein was accessed. An 11 Ecuadorean sheath was placed in the left femoral vein and two 8 Ecuadorean sheaths were placed in the right femoral vein. We did an ultrasound guidance. We put an 8 Ecuadorean IJ sheath. We did use 10.5 Acunav ultrasound catheter. We did visualize all the cardiac structures including mitral valve, tricuspid valve, LV, RV, pulmonary veins and left atrial appendage. Multiple catheters were placed through the right IJ into the CS. We did use ablation catheter also. We have the basic EP study of the patient. The patient has atrial flutter with cycle length 300 milliseconds with ventricular rate around 600 milliseconds. QRS is 128 milliseconds. QTC is 440 milliseconds. HV pre ablation is 84 milliseconds. We did terminate atrial flutter after ablation. So far post ablation, HV is 88 milliseconds, AH is 76 milliseconds, AV Wenckebach is 470 milliseconds. Post ablation 774 milliseconds in sinus with [place] 182, QRS is 86 milliseconds. Given his history of atrial fibrillation, we decided to target atrial fibrillation first. We did do mapping under LOYDA. We did isolation of all four pulmonary veins for treatment of atrial fibrillation, then we targeted foci for atrial fibrillation including anteroseptal CS. Afterwards we turned our attention to atrial flutter, we tended to arrhythmia other than atrial fibrillation, atrial flutter. It got slow then terminated after isolation of the left atrial appendage. Afterwards we did extensive ablation along the mitral annulus and entire CS. Then the patient was put on isoproterenol. CS burst pacing did not induce any atrial flutter. Heparin was given to keep ACT above 350 milliseconds. Post ablation, we did a measurement. HV is also prolonged 88 milliseconds. Acunav was used to visualize all the cardiac structures. There were no symptoms of pericardial effusion afterwards. Hemostasis was obtained and protamine was given. The patient tolerated the procedure well without any complications. CONCLUSION 1. Successful ablation of all four pulmonary veins for treatment of atrial fibrillation. 2. Successful ablation for other foci of atrial fibrillation including left atrial anterior septum, CS and mitral annulus. 3. Successful ablation of atypical atrial flutter after with isolation of the left atrial appendage. 4. Isuprel drug testing program stimulation. 5. Usage of intracardiac ultrasound. ESTIMATED BLOOD LOSS: About 10 cc. CONTRAST USED: About 5 to 10 cc. PLAN: I would DC amiodarone and Cardizem. Will cut Coreg to very minimal dose. Hopefully cardiomyopathy may improve, so far no urgent need for pacemaker yet but the patient may need some kind of pacing support in the future if the patient has more symptoms related to bradycardia with baseline prolonged HV. Thank you, Dr. Ortega, Dr. Schulte and Dr. Luke. MD JUSTIN Watson/AUNG /5:28 PM /8:08 AM
--- NOTE | 2017-09-20 08:15 | MR ---
cc: STEPHANIE ORTEGA MD,LEÓN SCHULTE,KELSIE Merlos M.D. DATE OF : 1950 DATE: 09/19/2017 REFERRING PHYSICIAN: Dr. Jordan Schulte CLINICAL INDICATION The patient is a 67-year-old gentleman with symptomatic atrial flutter and atrial fibrillation, thus the patient came in for MYRNA prior to ablation. PROCEDURE IN DETAIL The patient was sedated by the anesthesiologist using general anesthesia. Transesophageal probe was advanced to this part of the esophagus. Multiple views of MYRNA were taken. The patient tolerated the procedure well without any complications. FINDINGS On multiple views there is no RA thrombus in left atrial appendage. We did visualize the left atrial appendage during the views including 0, 45, 90 and 135 degree view. There was no apparent thrombus. The Doppler flow across the appendage showed a flow around 40. LV systolic function is marked to severely impaired in the setting of tachycardia, hopefully cardiomyopathy will improve with correction of tachycardia. Trace to mild MR and trace AR is noted. Trace to mild TR noted. There is no significant atrial shunt. There is no significant atherosclerotic plaque on the descending aorta. CONCLUSION 1. No apparent thrombus, left atrial and left atrial appendage. 2. Marked to severe LV global hypokinesis in the setting of tachycardia. 3. Trace to mild MR and trace AR. PLAN: Will proceed with ablation afterwards. Thank you, Dr. Ortega and Dr. Schulte. MD JUSTIN Watson/AUNG /3:02 PM /8:08 AM
[2017-09-20] MEDS ORDERED: CEPH-460 PO (08:32)
[2017-09-20] MEDS ORDERED: LISI-519 PO (08:32)
[2017-09-20] MEDS ORDERED: APIX5TAB PO (08:32)
[2017-09-20] MEDS ORDERED: CARV3.125 PO (08:32)
--- NOTE | 2017-09-20 08:33 | HHI.DCPOC ---
Discharge Care Plan Diagnosis: (1) Atrial fibrillation with RVR (2) Cardiomyopathy Goals to Promote Your Health * To prevent worsening of your condition and complications * To maintain your health at the optimal level Directions to Meet Your Goals Take your medications as prescribed Follow your dietary instruction Follow activity as directed Keep your appointments as scheduled Take your immunizations and boosters as scheduled If your symptoms worsen call your PCP, if no PCP go to Urgent Care Center or Emergency Room Smoking is Dangerous to Your Health. Avoid second hand smoke Call the 24-hour hour crisis hotline for domestic abuse at Geovanni Schulte MD Sep 20, 2017 08:33
--- NOTE | 2017-09-20 08:39 | HHI.DS ---
Discharge Summary Admission Date Sep 13, 2017 at 01:55 Discharge Date: Sep 20, 2017 Admitting Diagnosis afib/flutter (1) Atrial fibrillation with RVR Diagnosis: Principal ICD Codes: I48.91 - Unspecified atrial fibrillation Status: Acute (2) Cardiomyopathy Diagnosis: Principal ICD Codes: I42.9 - Cardiomyopathy, unspecified Status: Chronic Brief History Pt is 67 yo with hx afib/flutter and 2 ablations around 2009. He has chronic systolic chf and ef around 40%. Pt says he developed some brief afib last year. Last night developed more sustained palpitations. Came to ED and found to have afib/rvr. Placed on cardizem gtt. Seen by cardiology this AM. no cp or sob. CBC/BMP: 09/19/17 0605 09/19/17 0605 Significant Findings Laboratory Tests Test 09/19/17 06:05 Monocytes (%) (Auto) 9.7 % (0.0-8.0) Estimat Glomerular Filtration Rate 81 ML/MIN (>89) Hospital Course (1) Atrial fibrillation with RVR 1. A.fib/flutter with RVR. (past hx A.fib/flutter s/p ablations in 2009), still not well controlled, and pt has had apparent episode of VT - Cardiology following. Dr Barajas and Dr. Nj - EPS on 09/19 with ablations - Amiodarone gtt stopped and Cardizem gtt stopped - Pt was also on po cardizem, amiodarone, digoxin during the admission w/out HR control. These are discontinue on discharge after the ablation. - Pt is on Eliquis 5mg po BID 2. Chronic systolic CHF, EF 35-40% - resume his coreg and lisinipril. repeat 2 d echo during the admission shows ef at 35%. discussed with dr Barajas who feels it is an accurate assessment of his EF. Also there was felt to be some degree of reduction from tachycardia now controlled. 3. Right arm thrombophlebitis, possible cellulitis, related to old IV site - K-thermia and Cefazolin (started 09/16) for right arm. - Improving clinically - f/u with pcp for recheck. (2) Cardiomyopathy Pt Condition on Discharge: Stable Discharge Disposition: Discharge Home Discharge Instructions DIET: Follow Instructions for: Heart Healthy Diet Activities you can perform: Regular-No Restrictions Follow up Referrals: Cardiology - 1 Week with connor barajas Cardiology - 1 Week with Brenda Nj MD New Medications: Cephalexin (Keflex) 500 Mg Cap 500 MG PO Q8H for Infection for 2 Days, #6 CAP 0 Refills Lisinopril (Lisinopril) 5 Mg Tab 5 MG PO DAILY for Blood Pressure Management, #30 TAB 3 Refills Apixaban (Eliquis) 5 Mg Tab 5 MG PO BID for afib, #60 TAB 3 Refills Carvedilol (Coreg) 3.125 Mg Tab 3.125 MG PO BID for chf, #60 TAB Continued Medications: Aspirin (Aspir-81) 81 Mg Tab 81 MG PO DAILY, TAB Lovastatin (Lovastatin) 20 Mg Tab 20 MG PO HS, TAB Discontinued Medications: Carvedilol (Coreg) 6.25 Mg Tab 6.25 MG PO BID, #60 TAB 0 Refills Lisinopril (Lisinopril) 10 Mg Tab 10 MG PO DAILY, #30 TAB 0 Refills Geovanni Schulte MD Sep 20, 2017 08:39
[2017-09-20] MEDS: CARVEDILOL 3.125 MG TAB PO SCH (08:51)
[2017-09-20] MEDS: APIXABAN 5 MG TABLET PO SCH (08:52)
--- NOTE | 2017-09-20 21:13 | EKG ---
Date Performed: 09/20/2017 Time Performed: 05:34:28 PTAGE: 67 years EKG: Sinus rhythm with 1st degree A-V block Left axis deviation Left bundle branch block Abnormal ECG PREVIOUS TRACING : 09/19/2017 18.54 Compared to prior tracing no significant change DOCTOR: Theresa Michaels Interpretating Date/Time 09/20/2017 21:12:01
== END 2017-09-20 10:27 | disposition home or self-care (01) | DRG 271 ==
LOC: NEPC 22:29 → NEDA 09-13 01:55 → NEDH 09-13 05:55 → HIMN 09-13 06:50 → N04B 09-13 15:24 → HIMN 09-14 19:55 → N04A 09-15 17:37 → HCPC 09-19 17:25
PROVIDERS: ADMIT Hospitalist; ATTEND Hospitalist
PROC: 02573ZK Destruction of Left Atrial Appendage, Percutaneous Approach (ICD-10-PCS; 2017-09-19)
PROC: 02583ZZ Destruction of Conduction Mechanism, Percutaneous Approach (ICD-10-PCS; 2017-09-19)
PROC: 02553ZZ Destruction of Atrial Septum, Percutaneous Approach (ICD-10-PCS; 2017-09-19)
PROC: 025 Heart and Great Vessels, Destruction (ICD-10-PCS; 2017-09-19)
PROC: 025T3ZZ Destruction of Left Pulmonary Vein, Percutaneous Approach (ICD-10-PCS; 2017-09-19)
PROC: B246ZZ4 Ultrasonography of Right and Left Heart, Transesophageal (ICD-10-PCS; 2017-09-19)
PROC: 025S3ZZ Destruction of Right Pulmonary Vein, Percutaneous Approach (ICD-10-PCS; principal; 2017-09-19 14:45)
DX: I48.0 Paroxysmal atrial fibrillation (principal); I50.22 Chronic systolic (congestive) heart failure; I95.9 Hypotension, unspecified; I11.0 Hypertensive heart disease with heart failure; I42.9 Cardiomyopathy, unspecified; I80.8 Phlebitis and thrombophlebitis of other sites; T80.1XXA Vascular complications following infusion, transfusion and therapeutic injection, initial encounter; L03.113 Cellulitis of right upper limb; E78.5 Hyperlipidemia, unspecified; I47.1 Supraventricular tachycardia; I48.92 Unspecified atrial flutter; Z79.82 Long term (current) use of aspirin
CPT/HCPCS: 71010; 80048; 80053; 80162; 82550; 83880; 84484; 85002; 85025; 85610; 85730; 86850; 86900; 86901; 87641; 93005; 93306; 93312; 93320; 93325; 93613; 93623; 93656; 93662; 93971; 96361; 96365; 96375; C1730; C1732; C1759; C2630; J0153; J0282; J0690; J1160; J1644; J1940; J1956; J2720; J7050; J7060